=== PATIENT | male | born 1990 | race Caucasian/White ===

== ENCOUNTER 2020-04-14 07:13 | Emergency (ER) | payer MEDICAID, SELFPAY ==
[2020-04-14] VITALS (12 sets, daily range): BP systolic 134–140; BP diastolic 74–78; PULSE 71–113; RESP 7–29; TEMP 37.1; O2SAT 91–99
--- NOTE | 2020-04-14 07:39 | ED.GENADUL_ITS ---
Discharge Plan Disposition Patient Disposition: AGAINST MEDICAL ADVICE Discharge Details Chief Complaint: RespSymp Clinical Impression: Asthma exacerbation, Breath shortness Primary Care Provider: Carla Torres ED Provider: Everett Jameson Home Meds and New Rx's Prescriptions: New doxycycline hyclate 100 mg tablet 100 mg PO BID Qty: 14 RF: 0 Continued ipratropium-albuterol 3 ML solution for nebulization 3 ml UPD PRN PRNQty: 180 RF: 0 Changed fluticasone propion-salmeterol [Advair Diskus] 1 PUFF blister with device 2 ea Inhalation BID Qty: 60 RF: 0 levalbuterol tartrate [Xopenex HFA] 1 PUFF HFA aerosol inhaler 2 puff Inhalation PRN PRN (Reason: shortness of breath or wheezing) Qty: 15 RF: 2 No Action montelukast 10 MG tablet 10 mg PO DAILY RF: 0 cetirizine 10 MG tablet,chewable 10 mg PO DAILY RF: 0 ibuprofen 800 MG tablet 800 mg PO Q8H PRN PRNQty: 60 RF: 0 naproxen 500 MG tablet 500 mg PO BID PRN PRNQty: 30 RF: 0 Discharge Instructions Instructions: Asthma (ED), Against Medical Advice (ED) Additional Instructions: You are leaving AGAINST MEDICAL ADVICE and may have life-threatening or lifestyle modifying disease that is going untreated. Please contact your primary care physician to arrange follow-up. Call on Thursday. Return to the ER at any time for further work-up or treatment as recommended. Discharge Data Discharge Date/Time-TO BE ENTERED AT DEPARTURE: 04/14/20 09:45 Medical Decision Making <Carlos De Guzman MD - Last Filed: 04/14/20 07:45> 29 yo male with hx of asthma who has been withotu inhaler for a week weeks, smoker, recent relapse into use of heroin, comes in with worsening dry cough and shortness of breath for a few days without fevers, travel or known sick contacts. Denies rashes or chest pain. On exam he is in no distress though does have respiatory rate of 24 and diffuse wheezing in all lung manuel on exam. He has no murmurs and no stigmata or lesions such as janeway lesions or osler nodes to suggest endocarditis. Given his work of breath and lung exam findings suspect asthma exacerbation. Will tx with duoneb and solumedrol and monitor. NO chest pain or pressure so doubt acs. No evidence of dvt on exam or pleuritic chest pain and exam is consistent with asthma exacerbation so doubt PE, also wells low and perc negative. Given cough will obtain xray to eval for pna and though no known contacts or travel will obtain test for covid19 pt does note feeling anxious and does have some findings to suggest mild anxiety, will tx with ativan pt signed out to oncoming provider pending xray, labs and response to medical therapy Differential Diagnosis Differential Diagnosis: asthma exacerbation, viral uri, pna, covid19 <Everett Jameson MD - Last Filed: 04/25/20 10:43> 830??care signed out by Dr. De Guzman with plan to follow-up on labs, chest x-ray, and reassess the patient after albuterol and prednisone. Chest x-ray was reviewed and interpreted by radiology: No acute findings Labs reviewed: Mild hypokalemia noted. I will give K-Dur 20. VBG significant for mild elevation of PCO2. Patient reassessed after initial DuoNeb. Still with wheezing and coarse breath sounds bilaterally. Will give additional DuoNeb and reassess. --Patient noting signs of withdrawal from opioid. I did call and confirm that he has gone to the [facility] in [place], last treated 03/22/2020, they confirm dose of 22 mg. I will give Suboxone 12 mg dose here now and reassess. -- Patient received second neb and continues to have coarse breath sounds and some shortness of breath. Plan for neb treatment. Will give doxycycline to cover for bronchitis. Discussed treatment plan with the patient. Plan for additional neb and further observation potential hospitalization. Patient declines plan and wishes to leave against medical advise. I reiterated my concerns to the patient and explained the risks of leaving prior to completion of workup and treatment. I specifically emphasized the possibility of life-threatening or lifestyle modifying disease that would not be appropriately treated if they leave. Patient verbalized understanding of my concerns and the potential for life threatening or lifestyle modifying disease. Patient has capacity to make informed decision. I again explained my concerns and urged the patient to stay for treatment as outlined. Patient continued to refuse. I then discussed potential less ideal alternatives to diagnostic/treatment plan as outlines and patient refused. I recommended that the patient follow-up with primary care physician SANTIAGO or return to the Emergency Department at any time for further treatment. HPI <Carlos De Guzman MD - Last Filed: 04/14/20 07:45> General Mode of arrival: ambulatory . Date/Time Provider Initiated Documentation: 04/14/20 07:14 . Limitations to Documentation: no limitations . Information obtained by: patient . History of Present Illness 29 year old M presents to the emergency department with the chief complaint of shortness of breath, described as moderate, Patient started experiencing this day(s) (2) No relieving factors improve symptom(s), No exacerbating factors reported . Patient did receive the following treatments prior to arrival, none Related Data Home Medications Medication Instructions Recorded Confirmed cetirizine 10 mg PO DAILY 01/02/13 04/14/20 montelukast 10 mg PO DAILY 01/02/13 04/14/20 ibuprofen 800 mg PO Q8H PRN PRN #60 tab 03/30/13 04/14/20 naproxen 500 mg PO BID PRN PRN #30 tablet 06/10/15 04/14/20 doxycycline hyclate 100 mg PO BID #14 tab 04/14/20 fluticasone propion-salmeterol 2 ea INHALATION BID #60 each 04/14/20 [Advair Diskus] ipratropium-albuterol 3 ml UPD PRN PRN #180 ml 04/14/20 levalbuterol tartrate [Xopenex HFA] 2 puff INHALATION PRN PRN #15 gm 04/14/20 Previous Rx's Medication Instructions Recorded ibuprofen 800 mg PO Q8H PRN PRN #60 tab 03/30/13 naproxen 500 mg PO BID PRN PRN #30 tablet 06/10/15 doxycycline hyclate 100 mg PO BID #14 tab 04/14/20 fluticasone propion-salmeterol 2 ea INHALATION BID #60 each 04/14/20 [Advair Diskus] ipratropium-albuterol 3 ml UPD PRN PRN #180 ml 04/14/20 levalbuterol tartrate [Xopenex HFA] 2 puff INHALATION PRN PRN #15 gm 04/14/20 Allergies Allergy/AdvReac Type Severity Reaction Status Date / Time No Known Allergies Allergy Unverified 04/14/20 07:27 General Stated Complaint: RespSymp HEIKE: 3 Review of Systems <Carlos De Guzman MD - Last Filed: 04/14/20 07:45> All systems reviewed & are unremarkable except as noted in HPI and below Constitutional Constitutional: Denies chills, Denies fever(s) and Denies weakness ENT Ears, Nose, Mouth, and Throat: Denies change in voice Cardiovascular Cardiovascular: Denies chest pain Gastrointestinal Gastrointestinal: Denies abdominal pain, Denies nausea and Denies vomiting Musculoskeletal Musculoskeletal: Denies joint swelling Neurologic Neurologic: Denies weakness Psychiatric Psychiatric: Denies depression [facility] <Carlos De Guzman MD - Last Filed: 04/14/20 07:45> Social History Smoking/Tobacco Use Status: Current every day Tobacco Type: cigarettes Alcohol Intake: never Drug use: Daily Substance use type: marijuana and heroin Do you feel safe at home: Yes Do you feel safe in your relationship?: Yes Exam <Carlos De Guzman MD - Last Filed: 04/14/20 07:45> Const General: no acute distress Orientation: alert HENDC Head: normal to inspection Ears: external ears normal General nose exam: external nose normal Mouth: moist mucous membranes Eyes General: appearance normal, both eyes and all related structures Neck Neck: normal visual inspection Resp Effort & Inspection: normal respiratory effort and audible wheezes Cardio Rate: regular rate Skin General skin exam: no rashes or lesions noted Neuro General: patient alert and patient oriented x3 Extrem General: normal to inspection Psych Mental Status: mental status grossly normal Course <Carlos De Guzman MD - Last Filed: 04/14/20 07:45> Vital Signs Vital signs: Vital Signs Temperature 37.1 C 04/14/20 07:21 Pulse 102 H 04/14/20 07:21 Blood Pressure 134/74 04/14/20 07:21 Pulse Oximetry 96 04/14/20 07:21 Temperature 37.1 C 04/14/20 07:21 Temperature Source Oral 04/14/20 07:21 Pulse 102 H 04/14/20 07:21 Respiratory Effort 04/14/20 07:29 Respiratory Depth Normal 04/14/20 07:29 Blood Pressure 134/74 04/14/20 07:21 Blood Pressure Position Sitting 04/14/20 07:21 Pulse Oximetry 96 04/14/20 07:21 Oxygen Delivery Method Room Air 04/14/20 07:21 Oxygen Flow Rate 0 04/14/20 07:21 Sign Out <Carlos De Guzman MD - Last Filed: 04/14/20 07:45> Sign Out Data: Sign Out Comment: shortness of breath, uncontrolled asthma, f/u on labs and xray and response to therapy Last updated by Carlos De Guzman MD at 04/14/20 07:44
--- NOTE | 2020-04-14 07:54 | DI.RAD_ITS ---
EXAM: XR PORTABLE CHEST AP CLINICAL HISTORY: cough TECHNIQUE: 2D digital imaging was performed. COMPARISON: CR CHEST 2 VIEWS PA,LAT from 03/30/2013 FINDINGS: LUNGS: Clear. No pleural abnormality seen. HEART: Normal. MEDIASTINUM: Normal. OTHER FINDINGS: None. IMPRESSION: No acute pulmonary findings. DATA REPOSITORY: RADIATION DOSE DELIVERED:
[2020-04-14] MEDS: predniSONE 20 MG TAB 60 MG PO (08:00)
[2020-04-14] MEDS: Albuterol/Ipratropium 3 ML UPD VIAL UPD ×2 (08:00→08:48)
[2020-04-14] MEDS: LORazepam 1 MG TAB PO (08:00)
--- NOTE | 2020-04-14 08:02 | DI.VRAD_ITS ---
PROCEDURE INFORMATION: Exam: XR Chest, 1 View Exam date and time: 04/14/2020 7:46 AM Age: 29 years old Clinical indication: Other: Cough TECHNIQUE: Imaging protocol: XR of the chest Views: 1 view. COMPARISON: No relevant prior studies available. FINDINGS: Lungs: Unremarkable. No consolidation. Pleural space: Unremarkable. No pleural effusion. No pneumothorax. Heart/Mediastinum: Unremarkable. No cardiomegaly. Bones/joints: Unremarkable. IMPRESSION: No acute findings. Dictated and Authenticated by: Shailesh Gutierrez MD. Ordering:FRANSISCA Gonzalez MD
[2020-04-14 08:35] LABS: BE (Venous) 6.4 mmol/L (-3-3); HCO3 (Venous) 31 mmol/L (22-28); O2 Sat (Venous) 82 % (70-80); TCO2 (Venous) 27 mmol/L (22-29); pCO2 (Venous) 50 mm/Hg (34-47); pH (Venous) 7.41 (7.35-7.45); pO2 (Venous) 44 mm/Hg (28-44)
[2020-04-14 08:40] LABS: Abs Immature Grans 0.01 k/cumm (0.0-0.09); Absolute Basophil Count 0.06 k/cumm (0.0-0.2); Absolute Eosinophil Count 0.65 k/cumm (0.0-0.7); Absolute Lymphocyte Count 1.21 k/cumm (1.2-3.4); Absolute Monocyte Count 1.22 k/cumm (0.11-0.7); Absolute Neutrophil Count 6.87 k/cumm (1.2-6.7); Basophils % 0.6; Eosinophils % 6.5; HCT 44.9 % (40.0-50.0); HGB 15.2 g/dL (13.5-17.5); Immature Grans % 0.1 %; Lymphocytes % 12.1; Mean Corp. HGB Concentration 33.9 g/dL (32.0-36.0); Mean Corpuscular Hemoglobin 28.8 pg (27.0-33.0); Mean Corpuscular Volume 85.2 fL (80-95); Mean Platelet Volume 10.3 fL (8.0-11.0); Monocytes % 12.2; Neutrophils % 68.5; Platelet Count 232 x1000/uL (130-400); RBC 5.27 m/cumm (4.50-6.00); RBC Distribution Width 14.5 % (11.8-14.1); White Blood Cell Count 10.02 k/cumm (4.4-10.8)
[2020-04-14 08:56] LABS: ALT 23 U/L (16-63); AST 15 U/L (15-37); Albumin 3.8 g/dL (3.4-5.0); Alkaline Phosphatase 74 U/L (46-116); Anion Gap 7.6 mmol/L (3-11); BUN 12 mg/dL (7-18); Bilirubin, Total 0.4 mg/dL (0.2-1.0); CO2 30.4 mmol/L (21.0-32.0); CREATININE 0.92 mg/dL (0.70-1.30); Calcium 9.1 mg/dL (8.5-10.1); Chloride 102 mmol/L (98-107); Glucose 114 mg/dL (74-106); Magnesium 1.9 mg/dL (1.8-2.4); Potassium 3.4 mmol/L (3.5-5.1); Sodium 140 mmol/L (136-145); Total Protein 7.5 g/dL (6.4-8.2)
[2020-04-14] MEDS: Buprenorphine/Naloxone 12 mg/3 mg FILM 1 EACH SL (09:00)
[2020-04-14] MEDS: Doxycycline Hyclate 100 MG CAP PO (09:44)
[2020-04-14] MEDS: Potassium Chloride 20 MEQ TABCR PO (09:44)
--- NOTE | 2020-04-16 09:15 | CMPROGNOTE_ITS ---
- If Service Date Differs Date of service: 04/16/20 Time of Service: 09:15 Care Management Progress Note Ernesto is seen in the ED on April 14, 2020 for shortness of breath and asthma exacerbation. CM contacts [facility], Ernesto's PCP's office, to coordinate a follow-up appointment on Ernesto's behalf. Of note is that [facility] does not have contact information for Ernesto, but his PCP's office reports having a telephone number for him and [facility]
[2020-04-18 22:51] LABS: SARS-CoV-2 RNA Undetected (Undetected); SARS-CoV-2 Specimen Source Nasopharynx
== END 2020-04-14 09:45 | disposition left against medical advice (07) ==
PROVIDERS: Emergency Medicine; Emergency Provider Student in an Organized Health Care Education/Training Program; PCP Family Medicine
DX: J45.901 Unspecified asthma with (acute) exacerbation (principal); R06.02 Shortness of breath; R05 Cough; E87.6 Hypokalemia; F41.9 Anxiety disorder, unspecified; Z11.59 Encounter for screening for other viral diseases; Z53.29 Procedure and treatment not carried out because of patient's decision for other reasons; F17.210 Nicotine dependence, cigarettes, uncomplicated; F11.10 Opioid abuse, uncomplicated
CPT/HCPCS: 36410; 36415; 80053; 82805; 87040; 94640; 96374; 99285; U0003; 71045; 83735; 85025; 99284; J7512; J7620

== ENCOUNTER 2020-06-04 02:44 | Emergency (ER) | payer MEDICAID, SELFPAY ==
[2020-06-04] VITALS (23 sets, daily range): BP systolic 110–141; BP diastolic 59–86; PULSE 62–116; RESP 4–32; TEMP 36.4–36.6; O2SAT 85–98
--- NOTE | 2020-06-04 02:45 | DI.RAD_ITS ---
EXAM: XR PORTABLE CHEST AP CLINICAL HISTORY: asthma exacerbation. TECHNIQUE: 2D digital imaging was performed. COMPARISON: CR RIGHT RIBS PA CXR-3 VIEWS from 03/27/2013 CR,XR XR PORTABLE CHEST AP from 04/14/2020 FINDINGS: LUNGS: Clear. No pleural abnormality seen. HEART: Normal. MEDIASTINUM: Normal. OTHER FINDINGS: None. IMPRESSION: No acute pulmonary findings. DATA REPOSITORY: RADIATION DOSE DELIVERED: Total DLP
[2020-06-04] MEDS: EPINEPHrine 1 MG/ML AMP pres-free (02:49)
--- NOTE | 2020-06-04 02:57 | W.ED.GENAD ---
Discharge Plan Disposition Patient Disposition: HOME Condition: Good Discharge Details Chief Complaint: SOB Clinical Impression: Acute asthma exacerbation Primary Care Provider: Carla Torres ED Provider: Cristopher Gold Home Meds and New Rx's Prescriptions: New prednisone 50 MG tablet 50 mg PO DAILY Qty: 5 RF: 0 ipratropium-albuterol 0.5 mg-3 mg(2.5 mg base)/3 mL solution for nebulization 3 ml IH Q6H Qty: 90 RF: 2 Continued montelukast 10 MG tablet 10 mg PO DAILY RF: 0 cetirizine 10 MG tablet,chewable 10 mg PO DAILY RF: 0 ibuprofen 800 MG tablet 800 mg PO Q8H PRN PRNQty: 60 RF: 0 naproxen 500 MG tablet 500 mg PO BID PRN PRNQty: 30 RF: 0 doxycycline hyclate 100 mg tablet 100 mg PO BID Qty: 14 RF: 0 ipratropium-albuterol 3 ML solution for nebulization 3 ml UPD PRN PRNQty: 180 RF: 0 fluticasone propion-salmeterol [Advair Diskus] 1 PUFF blister with device 2 ea Inhalation BID Qty: 60 RF: 0 levalbuterol tartrate [Xopenex HFA] 1 PUFF HFA aerosol inhaler 2 puff Inhalation PRN PRN (Reason: shortness of breath or wheezing) Qty: 15 RF: 2 Discharge Instructions Instructions: Asthma (ED) Additional Instructions: You had a notable asthma exacerbation. Please take the steroids for an additional 5 days as prescribed. Please continue to use your inhaler every 4 hours 2 puffs to help improve your asthma symptomatology. Please follow-up closely with your primary care provider. If you notice any worsening of your symptoms, or any new symptoms such as vomiting, diarrhea, fever, chills, shortness of breath, chest pain, numbness, weakness, or fainting , please return immediately to the emergency department for reevaluation. Please follow up with your primary care provider as soon as possible for reassessment and reevaluation. As always, it was a pleasure participating in your medical care today. Referrals: Carla Torres [Primary Care Provider] - Medical Decision Making Upon my evaluation, this patient had a high probability of imminent or life-threatening deterioration, which required my direct attention, intervention, and personal management. I have personally provided 45 minutes of critical care time exclusive of time spent on separately billable procedures. Time includes review of laboratory data, radiology results, discussion with consultants, and monitoring for potential decompensation. Interventions were performed as documented. 29-year-old male with a past medical history of previous IV drug use for which he has been clean for a while, as well as notable severe asthma for which she has been intubated 3 times in the past presents today for acute exacerbation of asthma. Patient states that for the past 4 days he has been having notable worsening wheeze, he has been using multiple breathing treatments, multiple falls from his inhaler. In the he is also been taking steroids as prescribed by his PCP. Unfortunately in spite of this he has not been improving over the last few days. He presents today in notable respiratory extremis. He states that symptoms feels identical to previous asthma exacerbations. He denies any recent foreign travel, fever, chills or nausea vomiting or diarrhea. No other complaints at this time. Physical exam demonstrates notable respiratory extremis, diminished breath sounds throughout. Wheezes throughout. No other abnormalities clinically. Signs and symptoms appear notably consistent with acute asthma exacerbation. We will get portable chest x-ray, duo nebs and Solu-Medrol. Due to the patient's notable respiratory extremis, hypoxic status, and history of multiple intubations I do feel that epinephrine is indicated. We will give 0.5 mg intramuscularly. We will attempt to stave off intubation at this time as it feels that that would place the patient in a notably challenging ventilator scenario. Symptoms appearing consistent with coronavirus at this time. 5 a.m. After epinephrine, and breathing treatments the patient has a notable improvement of his symptomatology. He is feeling much better, has a significant ease and work of breathing. Chest x-ray was negative as read as negative per virtual radiology. Initial VBG did show evidence of mild CO2 retention, laboratory work-up shows mild elevation in his WBC count, however he has been on steroids for the last 4 days. No evidence of infiltrate on x-ray seen no evidence of significant infectious etiology. With the profound improvement the patient's symptomatology she is feeling well and would like to go home. I would like to continue to observe the patient for a bit longer here in the ED secondary to the epinephrine administration to make sure that there is no rebound component. After 3 hours of observation I do feel that discharge would be reasonable to respect the patient's current wishes. We will continue to monitor closely here. 5:40 a.m. Patient continues to feel very well, wheezes have notably improved, work of breathing has returned to normal, patient states that he feels 100 times better. He feels ready to go home. Patient will be discharged home with close follow-up, refill for DuoNeb prescription has been given, recommend avoiding NSAIDs, will do a 5-day continued burst of steroids. I have extensively reviewed the treatment plan and discharge instructions with the patient. I have addressed all patient concerns at this time. The patient was made aware of what symptoms to monitor for that would warrant a return to the emergency department. Discussed the plan with the patient, they demonstrate verbal understanding and agreement with our assessment and plan at this time. This time the patient shows no signs of acute life-threatening respiratory etiology anymore. Notable clinical improvement from his initial presentation. FINDINGS: Lungs: Mild chronic interstitial prominence, grossly stable. No consolidation. Pleural space: No pleural effusion. No pneumothorax. Heart/Mediastinum: Grossly stable. Bones/joints: Grossly stable IMPRESSION: No acute findings. No focal consolidation Thank you for allowing us to participate in the care of your patient. Dictated and Authenticated by: Yvan Gutierrez MD 06/04/2020 3:10 AM Eastern Time ([place] & [place]) HPI General Date/Time Provider Initiated Documentation: 06/04/20 02:45. HPI Narrative: 29-year-old male with a past medical history of previous IV drug use for which he has been clean for a while, as well as notable severe asthma for which she has been intubated 3 times in the past presents today for acute exacerbation of asthma. Patient states that for the past 4 days he has been having notable worsening wheeze, he has been using multiple breathing treatments, multiple falls from his inhaler. In the he is also been taking steroids as prescribed by his PCP. Unfortunately in spite of this he has not been improving over the last few days. He presents today in notable respiratory extremis. He states that symptoms feels identical to previous asthma exacerbations. He denies any recent foreign travel, fever, chills or nausea vomiting or diarrhea. No other complaints at this time. Related Data Home Medications Medication Instructions Recorded Confirmed cetirizine 10 mg PO DAILY 01/02/13 04/14/20 montelukast 10 mg PO DAILY 01/02/13 04/14/20 ibuprofen 800 mg PO Q8H PRN PRN #60 tab 03/30/13 04/14/20 naproxen 500 mg PO BID PRN PRN #30 tablet 06/10/15 04/14/20 doxycycline hyclate 100 mg PO BID #14 tab 04/14/20 fluticasone propion-salmeterol 2 ea INHALATION BID #60 each 04/14/20 [Advair Diskus] ipratropium-albuterol 3 ml UPD PRN PRN #180 ml 04/14/20 levalbuterol tartrate [Xopenex HFA] 2 puff INHALATION PRN PRN #15 gm 04/14/20 ipratropium-albuterol 3 ml IH Q6H #90 ml 06/04/20 prednisone 50 mg PO DAILY #5 tab 06/04/20 Previous Rx's Medication Instructions Recorded ibuprofen 800 mg PO Q8H PRN PRN #60 tab 03/30/13 naproxen 500 mg PO BID PRN PRN #30 tablet 06/10/15 doxycycline hyclate 100 mg PO BID #14 tab 04/14/20 fluticasone propion-salmeterol 2 ea INHALATION BID #60 each 04/14/20 [Advair Diskus] ipratropium-albuterol 3 ml UPD PRN PRN #180 ml 04/14/20 levalbuterol tartrate [Xopenex HFA] 2 puff INHALATION PRN PRN #15 gm 04/14/20 ipratropium-albuterol 3 ml IH Q6H #90 ml 06/04/20 prednisone 50 mg PO DAILY #5 tab 06/04/20 Allergies Allergy/AdvReac Type Severity Reaction Status Date / Time No Known Allergies Allergy Unverified 06/04/20 02:57 General Stated Complaint: SOB HEIKE: 1 Review of Systems All systems reviewed & are unremarkable except as noted in HPI and below PFSH Social History Smoking/Tobacco Use Status: Current every day Tobacco Type: cigarettes Alcohol Intake: never Drug use: Current Sobriety Substance use type: marijuana and heroin Do you feel safe at home: Yes Do you feel safe in your relationship?: Yes Exam Narrative Exam Narrative: 1.Const: Well-nourished, Well-developed, appearing stated age 2.Eyes: PERRL, no conjunctival injection, and symmetrical lids. 3.ENT: Atraumatic external nose and ears. Moist MM. Neck: Symmetric, trachea midline, No thyromegaly. 4.CVS: +S1/S2, No murmurs or gallops. Peripheral pulses 2+ and equal in all extremities. Brisk capillary refill in all extremities. 5.RESP: Notable respiratory difficulty, respiratory extremities, notable wheeze throughout, diminished lung sounds throughout. No rhonchi or rales. 6.GI: Soft, Nontender/Nondistended, No hepatosplenomegaly. No guarding or rebound. 7.MSK: Normocephalic/Atraumatic, Extremities w/o deformity or ttp No cyanosis or clubbing, Normal movement of all extremities 8.Skin: Warm, Dry. No rashes or lesions. 9.Neuro: linseed oil press tender II-XII grossly intact. Sensation grossly intact, no focal neurologic deficits. 10.Psych: (AAO) x3. Slightly anxious Course Vital Signs Vital signs: Vital Signs Temperature 36.4 C L 06/04/20 02:55 Pulse 109 H 06/04/20 02:55 Respiratory Rate 26 H 06/04/20 02:55 Blood Pressure 141/69 H 06/04/20 02:55 Pulse Oximetry 87 L 06/04/20 02:55 Temperature 36.4 C L 06/04/20 02:55 Temperature Source Skin 06/04/20 02:55 Pulse 109 H 06/04/20 02:55 Respiratory Rate 26 H 06/04/20 02:55 Blood Pressure 141/69 H 06/04/20 02:55 Blood Pressure Position Sitting 06/04/20 02:55 Pulse Oximetry 87 L 06/04/20 02:55 Oxygen Delivery Method Room Air 06/04/20 02:55 Oxygen Flow Rate 0 06/04/20 02:55 Pain Level 7 06/04/20 02:55
[2020-06-04 03:01] LABS: BE (Venous) 2 mmol/L (-2-3); HCO3 (Venous) 29 mmol/L (23-28); O2 Sat (Venous) 77 %; TCO2 (Venous) 26 mmol/L (24-29); pH (Venous) 7.27 (7.31-7.41); pO2 (Venous) 46 mmHg
[2020-06-04] MEDS: methylPREDNISolone SUCC 125 MG VIAL IVP (03:02)
[2020-06-04] MEDS: Albuterol/Ipratropium 3 ML UPD VIAL (03:03)
[2020-06-04 03:05] LABS: pCO2 (Venous) 64 mmHg (41-51)
[2020-06-04 03:11] LABS: Abs Immature Grans 0.05 10^3/uL (0.0-0.06); Absolute Basophil Count 0.06 10^3/uL (0.0-0.2); Absolute Eosinophil Count 0.24 10^3/uL (0.0-0.7); Absolute Lymphocyte Count 3.16 10^3/uL (1.2-3.4); Absolute Monocyte Count 1.29 10^3/uL (0.1-0.8); Absolute Neutrophil Count 10.05 10^3/uL (1.2-6.7); Basophils % 0.4; Eosinophils % 1.6; HCT 51.6 % (40.0-50.0); HGB 16.6 g/dL (13.5-17.5); Immature Grans % 0.3; Lymphocytes % 21.3; MCH 27.9 pg (27.0-33.0); MCHC 32.2 % (32.0-36.0); MCV 86.9 fL (80-95); MPV 10.4 fL (8.0-11.0); Monocytes % 8.7; Neutrophils % 67.7; Nucleated RBC 0 %; Platelet Count 297 10^3/uL (130-400); RBC 5.94 10^6/uL (4.36-5.78); RDW 14.1 % (11.8-14.1); RDW-SD 45.2 fL; WBC 14.85 10^3/uL (4.4-10.8)
--- NOTE | 2020-06-04 03:11 | DI.VRAD_ITS ---
PROCEDURE INFORMATION: Exam: XR Chest, 1 View Exam date and time: 06/04/2020 2:59 AM Age: 29 years old Clinical indication: Shortness of breath; Patient HX: Asthma exacerbation TECHNIQUE: Imaging protocol: XR of the chest Views: 1 view. COMPARISON: CR XR PORTABLE CHEST AP 04/14/2020 7:40 AM FINDINGS: Lungs: Mild chronic interstitial prominence, grossly stable. No consolidation. Pleural space: No pleural effusion. No pneumothorax. Heart/Mediastinum: Grossly stable. Bones/joints: Grossly stable IMPRESSION: No acute findings. No focal consolidation Dictated and Authenticated by: Yvan Gutierrez MD. Ordering:TRAVON Nicholas MD
[2020-06-04] MEDS: Acetaminophen 500 MG TAB 1000 MG PO (03:16)
[2020-06-04 03:30] LABS: ALT 43 U/L (16-63); AST 11 U/L (15-37); Albumin 4.3 g/dL (3.4-5.0); Alkaline Phosphatase 60 U/L (46-116); Anion Gap 6.5 mmol/L (3-11); BUN 18 mg/dL (7-18); Bilirubin, Total 0.2 mg/dL (0.2-1.0); CO2 30.5 mmol/L (21.0-32.0); CREATININE 0.93 mg/dL (0.70-1.30); Calcium 8.7 mg/dL (8.5-10.1); Chloride 105 mmol/L (98-107); Glucose 99 mg/dL (74-106); Magnesium 2.2 mg/dL (1.8-2.4); Potassium 4.2 mmol/L (3.5-5.1); Sodium 142 mmol/L (136-145); Total Protein 7.7 g/dL (6.4-8.2)
[2020-06-04] MEDS: Albuterol/Ipratropium 3 ML UPD VIAL 9 ML (05:09)
== END 2020-06-04 05:55 | disposition home or self-care (01) ==
PROVIDERS: Emergency Provider Student in an Organized Health Care Education/Training Program; PCP Family Medicine
DX: J45.901 Unspecified asthma with (acute) exacerbation (principal)
CPT/HCPCS: 80053; 82805; 94640; 96372; 96374; 99291; 36600; 71045; 83735; 85025; J0171; J2930; J7620

== ENCOUNTER 2020-06-05 09:10 | Emergency (ER) | payer MEDICAID, SELFPAY ==
[2020-06-05] VITALS (22 sets, daily range): BP systolic 123–139; BP diastolic 63–78; PULSE 75–108; RESP 4–22; TEMP 36.6; O2SAT 88–99
--- NOTE | 2020-06-05 09:15 | RT.EKG_ITS ---
APPROVED REPORT Exam: Resting ECG Patient Location: E HR:86 bpm ECG Measurements Heart Rate 86 AXIS MD 108 P 68 QRSd 103 QRS 33 QT 353 T 74 QTc 423 Conclusion Sinus rhythm...normal P axis, V-rate 60- 99 ST elev, probable normal early repol pattern...ST elevation, age<55
--- NOTE | 2020-06-05 09:15 | DI.RAD_ITS ---
EXAM: XR PORTABLE CHEST AP CLINICAL HISTORY: asthma, sob. TECHNIQUE: 2D digital imaging was performed. COMPARISON: CR,XR XR PORTABLE CHEST AP from 06/04/2020 FINDINGS: LUNGS: Clear. No pleural abnormality seen. HEART: Normal. MEDIASTINUM: Normal. OTHER FINDINGS: None. IMPRESSION: No acute pulmonary findings. DATA REPOSITORY: RADIATION DOSE DELIVERED: Total DLP
--- NOTE | 2020-06-05 09:24 | ED.GENADUL_ITS ---
Discharge Plan Disposition Patient Disposition: HOME Condition: Improving Discharge Details Chief Complaint: SOB Clinical Impression: Acute asthma exacerbation Primary Care Provider: Carla Torres ED Provider: Negro Whalen Home Meds and New Rx's Prescriptions: Continued montelukast 10 MG tablet 10 mg PO DAILY RF: 0 cetirizine 10 MG tablet,chewable 10 mg PO DAILY RF: 0 ibuprofen 800 MG tablet 800 mg PO Q8H PRN PRNQty: 60 RF: 0 naproxen 500 MG tablet 500 mg PO BID PRN PRNQty: 30 RF: 0 ipratropium-albuterol 0.5 mg-3 mg(2.5 mg base)/3 mL solution for nebulization 3 ml IH Q6H Qty: 90 RF: 2 prednisone 50 MG tablet 50 mg PO DAILY Qty: 5 RF: 0 ipratropium-albuterol 3 ML solution for nebulization 3 ml UPD PRN PRNQty: 180 RF: 0 fluticasone propion-salmeterol [Advair Diskus] 1 PUFF blister with device 2 ea Inhalation BID Qty: 60 RF: 0 levalbuterol tartrate [Xopenex HFA] 1 PUFF HFA aerosol inhaler 2 puff Inhalation PRN PRN (Reason: shortness of breath or wheezing) Qty: 15 RF: 2 Discharge Instructions Instructions: Asthma (ED) Additional Instructions: Continue the previously prescribed prednisone. Use your peak flow meter as instructed by respiratory therapy. Continue DuoNeb nebulizers at home as prescribed. Return for recurrent difficulty breathing, development of fever, or any other acute concerns. Continue your efforts to stop smoking. Medical Decision Making 29-year-old male seen early in the morning of June 04 for asthma exacerbation. States he has been unable to fill his prednisone prescription. Arrives with room air sat approximate 90 to 90% with increased work of breathing and started expiratory wheezes. IV access established patient given parenteral fluids, 3 inhaled aerogen nebulizers, referred for chest x-ray. Note of negative COVID testing on April 14. Portable chest x-ray obtained which does not show any acute findings. Patient was given parenteral Solu-Medrol, inhaled albuterol as beta agonist as well as magnesium. He improved and felt subjectively better. He was given instructions as to peak flow use, he was given to go medications for his nebulizer as well as a refill of his inhaler. He was recommended to have a further observation in the ED but requested early disposition in order to make an appointment for his daily methadone dose. I do feel this is reasonable request and patient was discharged in stable and improved condition. Lab Data Lab results reviewed: Yes I reviewed the patient's lab results. Labs: Laboratory Results - last 24 hr 06/05/20 06/05/20 09:25 09:25 WBC 13.95 H RBC 6.10 H Hgb 17.3 Hct 53.5 H MCV 87.7 MCH 28.4 MCHC 32.3 RDW 14.6 H Plt Count 282 MPV 10.1 Immature Gran % 0.5 Neutrophils % 79.2 Lymphocytes % 12.8 Monocytes % 7.3 Eosinophils % 0.1 Basophils % 0.1 Nucleated RBC % 0 Absolute Neutrophils 11.05 H Absolute Lymphocytes 1.79 Absolute Monocytes 1.02 H Absolute Eosinophils 0.01 Absolute Basophils 0.01 Sodium 140 Potassium 3.8 Chloride 105 Carbon Dioxide 31.1 Anion Gap 3.9 BUN 17 Creatinine 0.84 Estimated GFR/1.73 m2 >= 60.00 Glucose 94 Calcium 9.2 Total Bilirubin 0.5 AST 8 L ALT 40 Alkaline Phosphatase 61 Total Protein 7.9 Albumin 4.4 HPI General Mode of arrival: ambulatory . Date/Time Provider Initiated Documentation: 06/05/20 09:13 . Limitations to Documentation: no limitations . Information obtained by: patient . History of Present Illness 29 year old M presents to the emergency department with the chief complaint of Asthma exacerbation, unable to fill recent prescription, described as moderate and similar to prior episodes, Quality is described as dull and constant, and is localized to the chest. Patient reports no radiation. Patient started experiencing this hour(s) and it has been constant. No relieving factors improve symptom(s), No exacerbating factors reported . Patient notes other (No travel); denies cough and fever/chills. Related Data Home Medications Medication Instructions Recorded Confirmed cetirizine 10 mg PO DAILY 01/02/13 06/05/20 montelukast 10 mg PO DAILY 01/02/13 06/05/20 ibuprofen 800 mg PO Q8H PRN PRN #60 tab 03/30/13 06/05/20 naproxen 500 mg PO BID PRN PRN #30 tablet 06/10/15 06/05/20 fluticasone propion-salmeterol 2 ea INHALATION BID #60 each 04/14/20 06/05/20 [Advair Diskus] ipratropium-albuterol 3 ml UPD PRN PRN #180 ml 04/14/20 06/05/20 levalbuterol tartrate [Xopenex HFA] 2 puff INHALATION PRN PRN #15 gm 04/14/20 06/05/20 ipratropium-albuterol 3 ml IH Q6H #90 ml 06/05/20 prednisone 50 mg PO DAILY #5 tab 06/05/20 Previous Rx's Medication Instructions Recorded ibuprofen 800 mg PO Q8H PRN PRN #60 tab 03/30/13 naproxen 500 mg PO BID PRN PRN #30 tablet 06/10/15 fluticasone propion-salmeterol 2 ea INHALATION BID #60 each 04/14/20 [Advair Diskus] ipratropium-albuterol 3 ml UPD PRN PRN #180 ml 04/14/20 levalbuterol tartrate [Xopenex HFA] 2 puff INHALATION PRN PRN #15 gm 04/14/20 ipratropium-albuterol 3 ml IH Q6H #90 ml 06/05/20 prednisone 50 mg PO DAILY #5 tab 06/05/20 Allergies Allergy/AdvReac Type Severity Reaction Status Date / Time No Known Allergies Allergy Unverified 06/05/20 09:22 General Stated Complaint: SOB HEIKE: 2 Review of Systems Narrative: Positive dust and dander in the home. He is currently not smoking. Others in the home smoke. No travel, fever, production of sputum. 8 systems reviewed and otherwise negative. Was unable to fill prednisone prescription [facility] Social History Smoking/Tobacco Use Status: Current every day Tobacco Type: cigarettes Alcohol Intake: never Drug use: Current Sobriety Substance use type: marijuana and heroin Do you feel safe at home: Yes Do you feel safe in your relationship?: Yes Exam Narrative Exam Narrative: GEN: awake, alert, oriented 3. Pleasant, well groomed, interactive. HEAD: Normocephalic, atraumatic ENT: Mucous membranes moist, oropharynx unremarkable, External ear exam unremarkable EYES: PERRL, EOMI NECK: Full ROM, no EMELY, no menigismus CHEST/RESP: Tachypneic with inspiratory and expiratory wheezing CARDIOVASCULAR: Borderline regular tachycardia, no murmur, rub rebecca. 2+ Rad pulse bilateral ABDOMEN: Soft, nontender, no mass. +Bowel sounds EXT: Full ROM, no edema, no rash Neuro: Grossly normal neurologic exam, conversant, interactive. Psych: Speech fluent, thoughts congruent, affect normal Course Vital Signs Vital signs: Vital Signs Temperature 36.6 C 06/05/20 09:15 Pulse 99 H 06/05/20 09:15 Respiratory Rate 21 06/05/20 09:15 Pulse Oximetry 91 L 06/05/20 09:15 Temperature 36.6 C 06/05/20 09:15 Temperature Source Skin 06/05/20 09:15 Pulse 99 H 06/05/20 09:15 Respiratory Rate 21 06/05/20 09:15 Blood Pressure Position Sitting 06/05/20 09:15 Pulse Oximetry 91 L 06/05/20 09:15 Oxygen Delivery Method Room Air 06/05/20 09:15 Oxygen Flow Rate 0 06/05/20 09:15
[2020-06-05] MEDS: methylPREDNISolone SUCC 125 MG VIAL IVP (09:28)
[2020-06-05] MEDS: MAGNESIUM SULFATE 2 GM/50 ML BAG IVPB (09:29)
[2020-06-05] MEDS: Normal Saline Flush 10 ML SYR IVP (09:31)
[2020-06-05] MEDS: Albuterol/Ipratropium 3 ML UPD VIAL ×2 (09:37→09:40)
[2020-06-05 09:44] LABS: Abs Immature Grans 0.07 10^3/uL (0.0-0.06); Absolute Basophil Count 0.01 10^3/uL (0.0-0.2); Absolute Lymphocyte Count 1.79 10^3/uL (1.2-3.4); Absolute Monocyte Count 1.02 10^3/uL (0.1-0.8); Basophils % 0.1; Eosinophils % 0.1; HCT 53.5 % (40.0-50.0); HGB 17.3 g/dL (13.5-17.5); Immature Grans % 0.5; Lymphocytes % 12.8; MCH 28.4 pg (27.0-33.0); MCHC 32.3 % (32.0-36.0); MCV 87.7 fL (80-95); MPV 10.1 fL (8.0-11.0); Monocytes % 7.3; Neutrophils % 79.2; Nucleated RBC 0 %; Platelet Count 282 10^3/uL (130-400); RDW 14.6 % (11.8-14.1); RDW-SD 46.5 fL; WBC 13.95 10^3/uL (4.4-10.8)
[2020-06-05 09:48] LABS: Absolute Eosinophil Count 0.01 10^3/uL (0.0-0.7); Absolute Neutrophil Count 11.05 10^3/uL (1.2-6.7)
[2020-06-05 10:30] LABS: ALT 40 U/L (16-63); AST 8 U/L (15-37); Albumin 4.4 g/dL (3.4-5.0); Alkaline Phosphatase 61 U/L (46-116); Anion Gap 3.9 mmol/L (3-11); BUN 17 mg/dL (7-18); Bilirubin, Total 0.5 mg/dL (0.2-1.0); CO2 31.1 mmol/L (21.0-32.0); CREATININE 0.84 mg/dL (0.70-1.30); Calcium 9.2 mg/dL (8.5-10.1); Chloride 105 mmol/L (98-107); Glucose 94 mg/dL (74-106); Potassium 3.8 mmol/L (3.5-5.1); Sodium 140 mmol/L (136-145); Total Protein 7.9 g/dL (6.4-8.2)
== END 2020-06-05 10:51 | disposition home or self-care (01) ==
PROVIDERS: Emergency Provider Emergency Medicine; PCP Family Medicine
DX: J45.901 Unspecified asthma with (acute) exacerbation (principal)
CPT/HCPCS: 80053; 93005; 94640; 96374; 99284; 71045; 85025; 93010; J2930; J7611; J7620

== ENCOUNTER 2020-06-12 07:09 | Outpatient (CLI) | payer MEDICAID, SELFPAY ==
[2020-06-13 12:23] LABS: COVID-19 RT-PCR Result NEGATIVE (Negative)
== END 2020-06-12 07:29 ==
PROVIDERS: PCP Family Medicine; Visit Provider Family Medicine
DX: J45.901 Unspecified asthma with (acute) exacerbation (principal)
CPT/HCPCS: U0003

== ENCOUNTER 2020-06-15 01:14 | Outpatient (CLI) | payer MEDICAID, SELFPAY ==
[2020-06-15] MEDS: Albuterol HFA 18 GM 200 PUFF INH IH (14:22)
[2020-06-15] MEDS: Inhaler, Assist Device 1 EACH MC (14:22)
--- NOTE | 2020-06-28 16:29 | W.PFT ---
Date of service: 06/15/20 Time of Service: 10:02 Pulmonary Function Test Result Interpretation Spirometry: Shows very severe obstructive airways disease with significant bronchodilator response Lung Volumes: No evidence of restriction, severe hyperinflation and air trapping Diffusion Capacity: Normal Airway Pressure: Markedly elevated Impression Very severe obstructive airways disease, associated with significant bronchodilator response and severe hyperinflation and air trapping. It is also associated with severely elevated airways resistance Clinical Correlation therefore is recommended.
== END 2020-06-15 01:34 ==
PROVIDERS: PCP Family Medicine; Visit Provider Family Medicine
DX: J45.909 Unspecified asthma, uncomplicated (principal); R06.09 Other forms of dyspnea; R05 Cough; R07.89 Other chest pain; F17.200 Nicotine dependence, unspecified, uncomplicated
CPT/HCPCS: 94060; 94726; 94729

== ENCOUNTER 2020-06-28 10:28 | Emergency (ER) | payer MEDICAID, SELFPAY ==
[2020-06-28] VITALS (64 sets, daily range): BP systolic 99–140; BP diastolic 38–108; PULSE 75–113; RESP 4–28; TEMP 36.8; O2SAT 86–100
--- NOTE | 2020-06-28 10:42 | W.ED.GENAD ---
Discharge Plan Disposition Patient Disposition: HOME Condition: Improving Discharge Details Clinical Impression: Acute asthma exacerbation Primary Care Provider: Carla Torres ED Provider: Negro Whalen Home Meds and New Rx's Prescriptions: New prednisone 50 mg tablet 50 mg PO DAILY 6 Days Qty: 6 RF: 0 azithromycin 250 mg tablet See Rx Instructions .ROUTE .COMPLEX Qty: 6 RF: 0 Continued cetirizine 10 MG tablet,chewable 10 mg PO DAILY RF: 0 ibuprofen 800 MG tablet 800 mg PO Q8H PRN PRNQty: 60 RF: 0 ipratropium-albuterol 0.5 mg-3 mg(2.5 mg base)/3 mL solution for nebulization 3 ml IH Q6H Qty: 90 RF: 2 ipratropium-albuterol 3 ML solution for nebulization 3 ml UPD PRN PRNQty: 180 RF: 0 fluticasone propion-salmeterol [Advair Diskus] 1 PUFF blister with device 2 ea Inhalation BID Qty: 60 RF: 0 levalbuterol tartrate [Xopenex HFA] 1 PUFF HFA aerosol inhaler 2 puff Inhalation PRN PRN (Reason: shortness of breath or wheezing) Qty: 15 RF: 2 Discharge Instructions Instructions: Asthma (ED) Additional Instructions: Return if you have recurrent difficulty breathing, develop recurrent wheezing, or any other acute concerns. Take prednisone as prescribed for its entire course. Take azithromycin as prescribed. Continue your efforts to decrease smoking. Medical Decision Making 29-year-old male asthmatic who continues to smoke. He states he woke this morning with difficulty breathing and wheezing at home. He has noted a cough this week but no fever or known sick contacts. He arrives to the ED tachycardic and oxygenating 90%. He does not have a fever. IV access established, patient given parenteral steroids and inhaled beta agonist. Is referred for screening laboratories and chest x-ray. Chest x-ray without focal infiltrate. Laboratories note reassuring CBC and chemistries. Patient observed over 5 and half hours with significant improvement of his breathing. He is ambulatory and with a 95% sat on room air. Wheezing has nearly completely diminished and he subjectively feels all better. He did report cough with production of sputum and ongoing use of tobacco. I do feel compelled to place him on a course of antibiotics for a developing bronchitis, but he will also require systemic steroids with a burst of prednisone. He is stable and improved at this time. His length of stay in the ER placed him beyond the opening hours of the Suboxone clinic and he was given his daily dose prior to discharge. HPI General Mode of arrival: ambulatory. Date/Time Provider Initiated Documentation: 06/28/20 10:29. Limitations to Documentation: no limitations. Information obtained by: patient. History of Present Illness 29 year old M presents to the emergency department with the chief complaint of Asthma exacerbation, wheezing, described as moderate, Quality is described as constant, and is localized to the chest. Patient reports no radiation. Patient started experiencing this hour(s) and it has been constant. No relieving factors improve symptom(s), No exacerbating factors reported . Patient notes cough; denies fever/chills. Patient did receive the following treatments prior to arrival, none Related Data Home Medications Medication Instructions Recorded Confirmed cetirizine 10 mg PO DAILY 01/02/13 06/28/20 ibuprofen 800 mg PO Q8H PRN PRN #60 tab 03/30/13 06/28/20 fluticasone propion-salmeterol 2 ea INHALATION BID #60 each 04/14/20 06/28/20 [Advair Diskus] ipratropium-albuterol 3 ml UPD PRN PRN #180 ml 04/14/20 06/28/20 levalbuterol tartrate [Xopenex HFA] 2 puff INHALATION PRN PRN #15 gm 04/14/20 06/28/20 ipratropium-albuterol 3 ml IH Q6H #90 ml 06/05/20 06/28/20 azithromycin See Rx Instructions .ROUTE 06/28/20 .COMPLEX #6 tab prednisone 50 mg PO DAILY 6 Days #6 tab 06/28/20 Previous Rx's Medication Instructions Recorded ibuprofen 800 mg PO Q8H PRN PRN #60 tab 03/30/13 fluticasone propion-salmeterol 2 ea INHALATION BID #60 each 04/14/20 [Advair Diskus] ipratropium-albuterol 3 ml UPD PRN PRN #180 ml 04/14/20 levalbuterol tartrate [Xopenex HFA] 2 puff INHALATION PRN PRN #15 gm 04/14/20 ipratropium-albuterol 3 ml IH Q6H #90 ml 06/05/20 azithromycin See Rx Instructions .ROUTE 06/28/20 .COMPLEX #6 tab prednisone 50 mg PO DAILY 6 Days #6 tab 06/28/20 Allergies Allergy/AdvReac Type Severity Reaction Status Date / Time No Known Allergies Allergy Unverified 06/28/20 10:40 General Stated Complaint: SOB HEIKE: 2 Review of Systems Narrative: Continues to smoke, notes a cough this week, no known sick contacts or travel. 6 systems reviewed and otherwise negative [facility] Social History Smoking/Tobacco Use Status: Current every day Tobacco Type: cigarettes Alcohol Intake: never Drug use: Current Sobriety Substance use type: marijuana and heroin Do you feel safe at home: Yes Do you feel safe in your relationship?: Yes Exam Narrative Exam Narrative: GEN: awake, alert, oriented 3, well groomed, interactive. HEAD: Normocephalic, atraumatic ENT: Mucous membranes moist, oropharynx unremarkable, External ear exam unremarkable EYES: PERRL, EOMI NECK: Full ROM, no EMELY, no menigismus CHEST/RESP: Nontender, bilateral inspiratory and expiratory wheeze with increased work of breathing CARDIOVASCULAR: Tachycardic, regular, no murmur, rub rebecca. 2+ Rad pulse bilateral ABDOMEN: Soft, nontender, no mass. +Bowel sounds EXT: Full ROM, no edema, no rash Neuro: Grossly normal neurologic exam, conversant, interactive. Psych: Speech fluent, thoughts congruent, affect normal Course Vital Signs Vital signs: Vital Signs Temperature 36.8 C 06/28/20 10:36 Pulse 102 H 06/28/20 10:36 Blood Pressure 139/67 06/28/20 10:36 Pulse Oximetry 90 L 06/28/20 10:36 Temperature 36.8 C 06/28/20 10:36 Temperature Source Temporal Artery Scan 06/28/20 10:36 Pulse 102 H 06/28/20 10:36 Respiratory Effort Labored 06/28/20 10:40 Blood Pressure 139/67 06/28/20 10:36 Blood Pressure Position Supine 06/28/20 10:36 Pulse Oximetry 90 L 06/28/20 10:36 Oxygen Delivery Method Room Air 06/28/20 10:36 Oxygen Flow Rate 0 06/28/20 10:36
[2020-06-28] MEDS: MAGNESIUM SULFATE 2 GM/50 ML BAG IVPB (10:56)
[2020-06-28] MEDS: Albuterol 2.5 MG/3 ML INH SOLN VIAL (10:58)
[2020-06-28] MEDS: Normal Saline 1,000 ML 150 ML IV (11:10)
[2020-06-28] MEDS: methylPREDNISolone SUCC 125 MG VIAL IVP (11:10)
[2020-06-28 11:11] LABS: Abs Immature Grans 0.01 10^3/uL (0.0-0.06); Absolute Basophil Count 0.07 10^3/uL (0.0-0.2); Absolute Lymphocyte Count 1.07 10^3/uL (1.2-3.4); Absolute Monocyte Count 0.86 10^3/uL (0.1-0.8); Absolute Neutrophil Count 2.89 10^3/uL (1.2-6.7); Basophils % 1.3; Eosinophils % 9.3; HCT 47.5 % (40.0-50.0); HGB 15.6 g/dL (13.5-17.5); Immature Grans % 0.2; Lymphocytes % 19.8; MCH 27.9 pg (27.0-33.0); MCHC 32.8 % (32.0-36.0); MPV 10.4 fL (8.0-11.0); Monocytes % 15.9; Neutrophils % 53.5; Nucleated RBC 0 %; Platelet Count 245 10^3/uL (130-400); RBC 5.59 10^6/uL (4.36-5.78); RDW 14.1 % (11.8-14.1); RDW-SD 43.6 fL
[2020-06-28 11:24] LABS: ALT 31 U/L (16-63); AST 14 U/L (15-37); Alkaline Phosphatase 64 U/L (46-116); Anion Gap 7.4 mmol/L (3-11); BUN 18 mg/dL (7-18); Bilirubin, Total 0.4 mg/dL (0.2-1.0); CO2 29.6 mmol/L (21.0-32.0); CREATININE 1.01 mg/dL (0.70-1.30); Calcium 9.1 mg/dL (8.5-10.1); Chloride 104 mmol/L (98-107); Glucose 100 mg/dL (74-106); Potassium 3.9 mmol/L (3.5-5.1); Sodium 141 mmol/L (136-145); Total Protein 7.4 g/dL (6.4-8.2)
[2020-06-28] MEDS: Albuterol/Ipratropium 3 ML UPD VIAL UPD (12:00)
--- NOTE | 2020-06-28 12:00 | DI.RAD_ITS ---
EXAM: XR PORTABLE CHEST AP CLINICAL HISTORY: shortness of breath. TECHNIQUE: 2D digital imaging was performed. COMPARISON: CR XR PORTABLE CHEST AP from 06/05/2020 FINDINGS: LUNGS: Clear. No pleural abnormality seen. HEART: Normal. MEDIASTINUM: Normal. OTHER FINDINGS: None. IMPRESSION: No acute pulmonary findings. DATA REPOSITORY: RADIATION DOSE DELIVERED: Total DLP
[2020-06-28] MEDS: Buprenorphine/Naloxone 8 mg/2 mg FILM 1 EACH SL (16:19)
[2020-06-28] MEDS: Buprenorphine/Naloxone 12 mg/3 mg FILM 1 EACH SL (16:20)
--- NOTE | 2020-06-29 11:56 | CMPROGNOTE_ITS ---
- If Service Date Differs Date of service: 06/29/20 Time of Service: 11:56 Care Management Progress Note Ori presented to the ED via [facility] last evening for asthma exacerbation and a cough. WHIT spoke with Ori while he was at [facility]. Ori is a [facility] client who lives in [place] and uses [facility] back and forth to appointments. Due to his shortness of breath and cough, Ori was advised by the [facility] shuttle driver that rides to appointments were being cancelled until he could obtain a letter from [facility] stating he was tested for the coronavirus and the test results were negative. This morning, CM telephoned [facility] with verbal permission from Ori to clarify what they need from [facility] in order to reinstate rides for Ori. Sarita of [facility] advises that it is their policy to not provide rides to clients with coughs and shortness of breath until a letter is obtained from a medical provider stating the individual was tested for Covid-19 and the test results were negative. WHIT then contacted Mariam, vice-president of quality management at [facility], to ensure such a letter could be provided once the Covid-19 test results were back. Mariam affirmed her ability to write a letter addressed to Ori, which he could then present to [facility]. WHIT then contacted Tanja at the [facility] to see if they could provide ride assistance. Tanja advised she does have volunteer drivers that could be made available on week. WHIT texted Ori to provide him contact information for Tanja and to advise him to call her to work out the details for transportation. Ori advised he had figured out rides through the weekend and said he would call Tanja, as he likely will need rides to appointments next week.
[2020-06-30 21:21] LABS: Patient Race White; SARS-CoV-2 RNA Undetected (Undetected); SARS-CoV-2 Specimen Source Nasopharynx
--- NOTE | 2020-07-02 10:31 | NUR.NOTE ---
called made to patient letting him know that i his covid results were negative. results faxed to [facility] per his request as he was not able to ride [facility] until results were back and negative. 07/02/2020 @2368.
== END 2020-06-28 17:34 | disposition home or self-care (01) ==
PROVIDERS: Emergency Provider Emergency Medicine; PCP Family Medicine
DX: J45.901 Unspecified asthma with (acute) exacerbation (principal); R09.02 Hypoxemia; F17.210 Nicotine dependence, cigarettes, uncomplicated; Z03.818 Encounter for observation for suspected exposure to other biological agents ruled out
CPT/HCPCS: 36415; 80053; 94640; 96361; 96365; 96366; 96375; 99285; U0003; 71045; 85025; 99284; J2930; J7613; J7620

== ENCOUNTER 2020-08-04 13:21 | Emergency (ER) | payer MEDICAID, SELFPAY ==
[2020-08-04] VITALS (24 sets, daily range): BP systolic 115–191; BP diastolic 48–154; PULSE 73–117; RESP 4–48; TEMP 36.8; O2SAT 88–100
--- NOTE | 2020-08-04 13:15 | RT.EKG_ITS ---
APPROVED REPORT Exam: Resting ECG Patient Location: E HR:96 bpm ECG Measurements Heart Rate 96 AXIS CO 129 P 79 QRSd 89 QRS -15 QT 320 T 83 QTc 405 Conclusion Sinus rhythm...normal P axis, V-rate 60- 99 Right atrial enlargement...P>0.25mV 2 lds or<-0.24mV aVR/aVL Abnrm R prog, consider ASMI or lead placement...Q >30mS, diminished R, V1-V2 I have reviewed and interpreted ECG and agree with software generated interpretation.
--- NOTE | 2020-08-04 13:36 | ED.GENADUL_ITS ---
Discharge Plan Disposition Patient Disposition: HOME Condition: Improving Discharge Details Clinical Impression: Acute asthma exacerbation Primary Care Provider: Carla Torres ED Provider: Sheela Muhammad Home Meds and New Rx's Prescriptions: New prednisone 20 mg tablet See Rx Instructions .ROUTE .COMPLEX Qty: 18 RF: 0 montelukast [Singulair] 10 mg tablet 10 mg PO DAILY Qty: 30 RF: 0 Continued cetirizine 10 MG tablet,chewable 10 mg PO DAILY RF: 0 ibuprofen 800 MG tablet 800 mg PO Q8H PRN PRNQty: 60 RF: 0 ipratropium-albuterol 0.5 mg-3 mg(2.5 mg base)/3 mL solution for nebulization 3 ml IH Q6H Qty: 90 RF: 2 azithromycin 250 mg tablet See Rx Instructions .ROUTE .COMPLEX Qty: 6 RF: 0 ipratropium-albuterol 3 ML solution for nebulization 3 ml UPD PRN PRNQty: 180 RF: 0 fluticasone propion-salmeterol [Advair Diskus] 1 PUFF blister with device 2 ea Inhalation BID Qty: 60 RF: 0 levalbuterol tartrate [Xopenex HFA] 1 PUFF HFA aerosol inhaler 2 puff Inhalation PRN PRN (Reason: shortness of breath or wheezing) Qty: 15 RF: 2 Discharge Instructions Instructions: Asthma (ED) Additional Instructions: Drink plenty of fluids and get plenty of rest. Use your albuterol inhaler and nebulizer machine as needed and directed. Take the steroids until finished. Start taking your Advair that you have at home and restart the Singulair prescription. Follow-up with your primary care doctor in 1 week. Return to the emergency department with any worsening or new concerning symptoms. Discharge Data Discharge Date/Time-TO BE ENTERED AT DEPARTURE: 08/04/20 15:34 Discharge Physician: Sheela Muhammad Medical Decision Making 8671 -- 29-year-old male with a history of asthma presents with shortness of breath since this morning consistent with asthma exacerbation. History of 3 previous intubations. Heart rate tachycardic. Respiratory rate 30s to 40s. Oxygen saturation 88 to 91% on room air. Patient placed on 2 L by nurse. Patient in tripod positioning using accessory muscles with wheezing and rhonchi throughout. Start duo nebs, albuterol, 125 Solu-Medrol, 2 g magnesium and IV fluids ordered. EKG notes a rate of 96, sinus with no acute ST findings. 1400 --patient reassessed and he feels much better. Oxygen saturation 99% on [address] on room air and reassess. 1430 --patient reassessed and he states he feels 100% better. Wheezing significantly improved but lung sounds still appear diminished. Oxygen saturation 91% on room air. Will give another 5 mg neb and reassess. 1510 --patient ambulated around the ED and felt much better with oxygen saturation 95% on room air which she states is his baseline. Lung sounds significantly improved. Patient requesting to go home. We will send with prescription for steroids and Singulair. He states his mom will bring him his nebulizer and he has plenty of albuterol inhaler and solution at home. Advised to follow up with the primary care doctor for re-evaluation. Usual and customary return precautions given prior to discharge. Medical Records Medical records reviewed: Yes I reviewed the patient's medical records. ECG Data Attestation: I personally reviewed and interpreted this ECG (s) as follows: Interpretation: Rate of 96, sinus, no acute ST elevation or depression. TX 129. QRS 89. QTc 405. HPI General Mode of arrival: ambulatory . Date/Time Provider Initiated Documentation: 08/04/20 13:24 . Limitations to Documentation: no limitations . Information obtained by: patient . HPI Narrative: Patient is a 29-year-old male with a history of asthma with 3 previous intubations due to asthma exacerbations presents with shortness of breath since this morning. Patient denies any fever or significant cough. He states he has been using his Ventolin inhaler without relief. He states he recently moved out of his apartment and has not had access to his nebulizer machine which usually helps him. He does not take his Advair which is prescribed as he feels that it does not help him. He denies any recent travel, recent known sick contacts. Related Data Home Medications Medication Instructions Recorded Confirmed cetirizine 10 mg PO DAILY 01/02/13 06/28/20 ibuprofen 800 mg PO Q8H PRN PRN #60 tab 03/30/13 06/28/20 fluticasone propion-salmeterol 2 ea INHALATION BID #60 each 04/14/20 06/28/20 [Advair Diskus] ipratropium-albuterol 3 ml UPD PRN PRN #180 ml 04/14/20 06/28/20 levalbuterol tartrate [Xopenex HFA] 2 puff INHALATION PRN PRN #15 gm 04/14/20 06/28/20 ipratropium-albuterol 3 ml IH Q6H #90 ml 06/05/20 06/28/20 azithromycin See Rx Instructions .ROUTE 06/28/20 .COMPLEX #6 tab montelukast [Singulair] 10 mg PO DAILY #30 tab 08/04/20 prednisone See Rx Instructions .ROUTE 08/04/20 .COMPLEX #18 tab Previous Rx's Medication Instructions Recorded ibuprofen 800 mg PO Q8H PRN PRN #60 tab 03/30/13 fluticasone propion-salmeterol 2 ea INHALATION BID #60 each 04/14/20 [Advair Diskus] ipratropium-albuterol 3 ml UPD PRN PRN #180 ml 04/14/20 levalbuterol tartrate [Xopenex HFA] 2 puff INHALATION PRN PRN #15 gm 04/14/20 ipratropium-albuterol 3 ml IH Q6H #90 ml 06/05/20 azithromycin See Rx Instructions .ROUTE 06/28/20 .COMPLEX #6 tab montelukast [Singulair] 10 mg PO DAILY #30 tab 08/04/20 prednisone See Rx Instructions .ROUTE 08/04/20 .COMPLEX #18 tab Allergies Allergy/AdvReac Type Severity Reaction Status Date / Time No Known Allergies Allergy Unverified 08/04/20 13:48 General Stated Complaint: SOB HEIKE: 2 Review of Systems All systems reviewed & are unremarkable except as noted in HPI and below Constitutional Constitutional: Reports as per HPI, Denies chills and Denies fever(s) Eyes Eyes: Denies blurry vision ENT Ears, Nose, Mouth, and Throat: Denies dizziness, Denies sore throat and Denies throat swelling Cardiovascular Cardiovascular: Denies chest pain and Reports dyspnea Respiratory Respiratory: Denies cough and Reports dyspnea Gastrointestinal Gastrointestinal: Denies abdominal pain, Denies diarrhea and Denies vomiting Genitourinary Genitourinary: Denies hematuria and Denies dysuria Musculoskeletal Musculoskeletal: Denies back pain and Denies numbness Integumentary/Breasts Skin/Breast: Denies lesions and Denies rash Neurologic Neurologic: Denies dizziness, Denies localized weakness and Denies numbness Allergic/Immunologic Allergic/Immunologic: Denies throat swelling [facility] Medical History (Updated 08/04/20 @ 15:16 by Sheela Muhammad DO) Asthma Social History Smoking/Tobacco Use Status: Current every day Tobacco Type: cigarettes Alcohol Intake: never Drug use: Occasionally Substance use type: former substance user, marijuana and heroin Do you feel safe at home: Yes Do you feel safe in your relationship?: Yes Exam Const General: cooperative, no acute distress and in distress respiratory Orientation: alert, awake and oriented x3 HENMT Head: normal to inspection Face and sinus: normal facial exam Eyes General: appearance normal, both eyes and all related structures Pupils: PERRL EOM: EOM intact bilaterally Neck Neck: normal visual inspection and No submandibular swelling Lymphatic: no lymphadenopathy noted Chest Chest: normal inspection of the chest and no tenderness Resp Effort & Inspection: not able to speak in complete sentences, retractions supraclavicular, tachypneic, tripod positioning and uses accessory muscles Auscultation: rhonchi upper bilaterally and lower bilaterally and wheezes expiratory wheezes and inspiratory wheezes Cardio Rate: tachycardic Rhythm: regular rhythm GI Inspection: normal to inspection Palpation: soft, not firm, not rigid and nontender Auscultation: normal bowel sounds Skin General skin exam: no rashes or lesions noted Neuro General: patient alert, patient awake and patient oriented x3 Cognition: normal cognition Speech: speech normal Motor: muscle tone normal throughout Sensory Exam: no sensory deficits noted Extrem General: normal to inspection, full ROM, capillary refill normal, no calf tenderness bilaterally and no edema Psych Appearance: grossly normal Mental Status: mental status grossly normal Speech and Movement: speech and movement normal Affect: normal affect Course Vital Signs Vital signs: Vital Signs Temperature 98.2 F 08/04/20 13:27 Pulse 117 H 08/04/20 13:27 Blood Pressure 191/154 H 08/04/20 13:27 Pulse Oximetry 93 08/04/20 13:27 Temperature 98.2 F 08/04/20 13:27 Temperature Source Skin 08/04/20 13:27 Pulse 117 H 08/04/20 13:27 Blood Pressure 191/154 H 08/04/20 13:27 Blood Pressure Position Sitting 08/04/20 13:27 Pulse Oximetry 93 08/04/20 13:27 Oxygen Delivery Method Nasal Cannula 08/04/20 13:27 Oxygen Flow Rate 2 08/04/20 13:27
[2020-08-04] MEDS: Albuterol/Ipratropium 3 ML UPD VIAL 6 ML UPD (13:38)
[2020-08-04] MEDS: Normal Saline 1,000 ML 1000 ML IV (13:44)
[2020-08-04] MEDS: methylPREDNISolone SUCC 125 MG VIAL IVP (13:44)
[2020-08-04] MEDS: ACETAMINOPHEN 1,000 MG/100 ML BTL 400 MG (13:57)
[2020-08-04] MEDS: Albuterol 2.5 MG/3 ML INH SOLN VIAL 7.5 MG UPD (13:59)
[2020-08-04] MEDS: Albuterol 2.5 MG/3 ML INH SOLN VIAL 5 MG UPD (14:43)
== END 2020-08-04 15:34 | disposition home or self-care (01) ==
PROVIDERS: Emergency Provider Physician Assistant; PCP Family Medicine
DX: J45.901 Unspecified asthma with (acute) exacerbation (principal); R09.02 Hypoxemia; F17.210 Nicotine dependence, cigarettes, uncomplicated
CPT/HCPCS: 93005; 94640; 96361; 96374; 96375; 99284; 93010; 99285; J0131; J2930; J7613; J7620

== ENCOUNTER 2020-09-22 09:35 | Emergency (ER) | payer MEDICAID, SELFPAY ==
[2020-09-22] VITALS (18 sets, daily range): BP systolic 104–127; BP diastolic 54–81; PULSE 76–114; RESP 4–26; TEMP 36.3; O2SAT 86–97
--- NOTE | 2020-09-22 09:36 | W.ED.GENAD ---
Discharge Plan Disposition Patient Disposition: HOME Condition: Improving Discharge Details Clinical Impression: Asthma exacerbation Primary Care Provider: Carla Torres ED Provider: Sheela Muhammad Home Meds and New Rx's Prescriptions: New prednisone 20 mg tablet See Rx Instructions .ROUTE .COMPLEX Qty: 12 RF: 0 albuterol sulfate 2.5 mg /3 mL (0.083 %) solution for nebulization 2.5 mg IH Q4H PRN (Reason: shortness of breath or wheezing) Qty: 75 RF: 0 levofloxacin 750 mg tablet 750 mg PO DAILY 5 Days Qty: 5 RF: 0 No Action cetirizine 10 MG tablet,chewable 10 mg PO DAILY RF: 0 ibuprofen 800 MG tablet 800 mg PO Q8H PRN PRNQty: 60 RF: 0 ipratropium-albuterol 0.5 mg-3 mg(2.5 mg base)/3 mL solution for nebulization 3 ml IH Q6H Qty: 90 RF: 2 ipratropium-albuterol 3 ML solution for nebulization 3 ml UPD PRN PRNQty: 180 RF: 0 fluticasone propion-salmeterol [Advair Diskus] 1 PUFF blister with device 2 ea Inhalation BID Qty: 60 RF: 0 levalbuterol tartrate [Xopenex HFA] 1 PUFF HFA aerosol inhaler 2 puff Inhalation PRN PRN (Reason: shortness of breath or wheezing) Qty: 15 RF: 2 montelukast [Singulair] 10 mg tablet 10 mg PO DAILY Qty: 30 RF: 0 Discharge Instructions Instructions: Asthma (ED) Additional Instructions: Drink plenty of fluids and get plenty of rest. Use the albuterol inhaler and albuterol nebulizer treatments as needed and directed. Take the steroids until finished. If your symptoms do not improve or worsen or you develop fever over the next few days, you can start the antibiotics. You will receive a call from care management regarding a follow-up appointment to establish care with a new primary care doctor near your residence and for reevaluation after your recent emergency department visit. Return to the emergency department with any worsening or new concerning symptoms. Discharge Data Discharge Date/Time-TO BE ENTERED AT DEPARTURE: 09/22/20 11:31 Discharge Physician: Sheela Muhammad Medical Decision Making 0940 -- 30-year-old male with a history of asthma presents for cough with green sputum and shortness of breath for the past week. Patient appears to have mild work of breathing with diffuse wheezing throughout. Oxygen saturation 87 to 90% on room air. Most likely acute asthma exacerbation. Will place an IV, bolus IV fluids, Solu-Medrol, DuoNeb and albuterol and check a portable chest x-ray to rule out pneumonia. 1010 --patient reassessed -he states he feels approximately 90% better. Still has wheezing throughout but does not appear in any respiratory distress and is speaking in full sentences. Oxygen saturation 93% on room air initially and then did decrease to 89 to 90%. Will obtain a peak flow, give another DuoNeb. Still awaiting portable chest x-ray. 1100 --patient reassessed and he feels significantly better and is requesting to go home. Portable chest x-ray negative. Peak flow 200s which is usually his baseline. We will send home with albuterol inhaler, nebulizer solution and oral steroids. He is requesting an antibiotic. Advised to hold on antibiotics unless symptoms do not improve or worsen. Patient has a primary care doctor but far away from his area where he recently moved. Patient placed on care management list to arrange for a new primary care doctor to establish care and for reevaluation. Usual and customary return precautions given prior to discharge. Medical Records Medical records reviewed: Yes I reviewed the patient's medical records. Imaging Data Radiologic Study: Radiologist's impression: XR Chest, 1 View Exam date and time: 09/22/2020 11:05 AM Age: 30 years old Clinical indication: Other: Cough, SOB, R/O acute disease TECHNIQUE: Imaging protocol: XR of the chest Views: 1 view. COMPARISON: CR XR PORTABLE CHEST AP 06/28/2020 11:44 AM FINDINGS: Lungs: Clear lungs. Pleural space: No pneumothorax. No sizeable effusion. Heart/Mediastinum: Cardiomediastinal silhouette is within normal limits. Bones/joints: No acute displaced fracture or dislocation. IMPRESSION: No acute cardiopulmonary process. HPI General Mode of arrival: ambulatory. Date/Time Provider Initiated Documentation: 09/22/20 09:36. Limitations to Documentation: no limitations. Information obtained by: patient. HPI Narrative: Patient is a 30-year-old male with a history of asthma presents for cough with green sputum and difficulty breathing for the past week. States he feels consistent with his usual asthma exacerbation consistent with weather change this week. Patient states he ran out of his duo nebs last night and attempted to get a refill today but was unable to. Patient smokes cigarettes and marijuana. Patient was last seen here in July for asthma exacerbation and was treated with oral steroids and symptoms completely improved until the past week. He denies any known sick contacts or recent exposure to coronavirus. He denies any fever or chest pain. Patient has a history of 3 intubations in the past, the last occurring several years ago. Related Data Home Medications Medication Instructions Recorded Confirmed cetirizine 10 mg PO DAILY 01/02/13 09/22/20 ibuprofen 800 mg PO Q8H PRN PRN #60 tab 03/30/13 06/28/20 fluticasone propion-salmeterol 2 ea INHALATION BID #60 each 04/14/20 09/22/20 [Advair Diskus] ipratropium-albuterol 3 ml UPD PRN PRN #180 ml 04/14/20 09/22/20 levalbuterol tartrate [Xopenex HFA] 2 puff INHALATION PRN PRN #15 gm 04/14/20 09/22/20 ipratropium-albuterol 3 ml IH Q6H #90 ml 06/05/20 09/22/20 montelukast [Singulair] 10 mg PO DAILY #30 tab 08/04/20 09/22/20 albuterol sulfate 2.5 mg IH Q4H PRN #75 ml 09/22/20 levofloxacin 750 mg PO DAILY 5 Days #5 tab 09/22/20 prednisone See Rx Instructions .ROUTE 09/22/20 .COMPLEX #12 tab Previous Rx's Medication Instructions Recorded ibuprofen 800 mg PO Q8H PRN PRN #60 tab 03/30/13 fluticasone propion-salmeterol 2 ea INHALATION BID #60 each 04/14/20 [Advair Diskus] ipratropium-albuterol 3 ml UPD PRN PRN #180 ml 04/14/20 levalbuterol tartrate [Xopenex HFA] 2 puff INHALATION PRN PRN #15 gm 04/14/20 ipratropium-albuterol 3 ml IH Q6H #90 ml 06/05/20 montelukast [Singulair] 10 mg PO DAILY #30 tab 08/04/20 albuterol sulfate 2.5 mg IH Q4H PRN #75 ml 09/22/20 levofloxacin 750 mg PO DAILY 5 Days #5 tab 09/22/20 prednisone See Rx Instructions .ROUTE 09/22/20 .COMPLEX #12 tab Allergies Allergy/AdvReac Type Severity Reaction Status Date / Time No Known Allergies Allergy Unverified 09/22/20 09:45 General HEIKE: 2 Review of Systems All systems reviewed & are unremarkable except as noted in HPI and below Constitutional Constitutional: Reports as per HPI, Denies chills and Denies fever(s) Eyes Eyes: Denies blurry vision ENT Ears, Nose, Mouth, and Throat: Denies dizziness, Denies sore throat and Denies throat swelling Cardiovascular Cardiovascular: Denies chest pain and Reports dyspnea Respiratory Respiratory: Reports cough and Reports dyspnea Gastrointestinal Gastrointestinal: Denies abdominal pain, Denies diarrhea and Denies vomiting Genitourinary Genitourinary: Denies hematuria and Denies dysuria Musculoskeletal Musculoskeletal: Denies back pain and Denies numbness Integumentary/Breasts Skin/Breast: Denies lesions and Denies rash Neurologic Neurologic: Denies dizziness, Denies localized weakness and Denies numbness Allergic/Immunologic Allergic/Immunologic: Denies throat swelling [facility] Medical History (Updated 09/22/20 @ 10:57 by Sheela Muhammad DO) Asthma Social History Smoking/Tobacco Use Status: Current every day Tobacco Type: cigarettes Smoking risk assessment performed?: Yes Alcohol Intake: never Drug use: Occasionally Substance use type: former substance user, marijuana and heroin Do you feel safe at home: Yes Do you feel safe in your relationship?: Yes Exam Const General: cooperative, healthy appearing and acute distress respiratory (mild) HENMT Head: normal to inspection Face and sinus: normal facial exam Eyes General: appearance normal, both eyes and all related structures EOM: EOM intact bilaterally Neck Neck: normal visual inspection and No submandibular swelling Lymphatic: no lymphadenopathy noted Chest Chest: normal inspection of the chest and no tenderness Resp Effort & Inspection: normal respiratory effort, able to speak in complete sentences (4-5 word sentences), no nasal flaring, no tracheal deviation and uses accessory muscles (Minimal) Auscultation: clear to auscultation bilaterally Cardio Rate: tachycardic Rhythm: regular rhythm GI Inspection: normal to inspection Palpation: soft, not firm, not rigid and nontender Auscultation: normal bowel sounds Skin General skin exam: no rashes or lesions noted Neuro General: patient alert, patient awake and patient oriented x3 Cognition: normal cognition Speech: speech normal Motor: muscle tone normal throughout Sensory Exam: no sensory deficits noted Extrem General: normal to inspection, full ROM, capillary refill normal, no calf tenderness bilaterally and no edema Psych Appearance: grossly normal Mental Status: mental status grossly normal Speech and Movement: speech and movement normal Affect: normal affect
[2020-09-22] MEDS: Normal Saline Flush 10 ML SYR IVP (09:40)
[2020-09-22] MEDS: Normal Saline 1,000 ML 1000 ML IV (09:45)
[2020-09-22] MEDS: methylPREDNISolone SUCC 125 MG VIAL IVP (09:45)
[2020-09-22] MEDS: Albuterol/Ipratropium 3 ML UPD VIAL UPD (09:50)
[2020-09-22] MEDS: Albuterol 2.5 MG/3 ML INH SOLN VIAL 5 MG UPD (10:09)
[2020-09-22] MEDS: Albuterol/Ipratropium 3 ML UPD VIAL (10:12)
--- NOTE | 2020-09-22 11:04 | DI.RAD_ITS ---
EXAM: XR PORTABLE CHEST AP CLINICAL HISTORY: cough, sob, r/o acute disease TECHNIQUE: 2D digital imaging was performed. COMPARISON: CR XR PORTABLE CHEST AP from 06/28/2020 FINDINGS: MEDIASTINUM: Normal. HEART: Normal. PULMONARY VASCULATURE: Normal. LUNGS: Clear. PLEURAL SPACE: No pleural effusion or pneumothorax. BONE:Within normal limits for the patient's age. OTHER FINDINGS:Normal. IMPRESSION: No acute pulmonary findings. DATA REPOSITORY: RADIATION DOSE DELIVERED:
--- NOTE | 2020-09-22 11:11 | DI.VRAD_ITS ---
PROCEDURE INFORMATION: Exam: XR Chest, 1 View Exam date and time: 09/22/2020 11:05 AM Age: 30 years old Clinical indication: Other: Cough, SOB, R/O acute disease TECHNIQUE: Imaging protocol: XR of the chest Views: 1 view. COMPARISON: CR XR PORTABLE CHEST AP 06/28/2020 11:44 AM FINDINGS: Lungs: Clear lungs. Pleural space: No pneumothorax. No sizeable effusion. Heart/Mediastinum: Cardiomediastinal silhouette is within normal limits. Bones/joints: No acute displaced fracture or dislocation. IMPRESSION: No acute cardiopulmonary process. Dictated and Authenticated by: Joe Hair MD. Ordering:DARYA Coker MD
[2020-09-22] MEDS: Albuterol HFA 8 GM 60 PUFF INH IH (11:15)
--- NOTE | 2020-09-22 11:37 | NUR.NOTE ---
2 spacers given-reg and a pocket, peak flow meter given.Nursing Note:
--- NOTE | 2020-09-22 12:34 | NUR.NOTE ---
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 Patient new to area,needs PCP for follow up, Cande Mathias
== END 2020-09-22 11:31 | disposition home or self-care (01) ==
PROVIDERS: Emergency Provider Physician Assistant; PCP Family Medicine
DX: R09.02 Hypoxemia (principal); J45.901 Unspecified asthma with (acute) exacerbation; F17.210 Nicotine dependence, cigarettes, uncomplicated; F12.10 Cannabis abuse, uncomplicated
CPT/HCPCS: 94640; 96361; 96374; 99284; 71045; 99285; J2930; J7613; J7620

== ENCOUNTER 2021-09-02 12:12 | Emergency (ER) | payer MEDICAID, SELFPAY ==
[2021-09-02 12:18] VITALS: BP 114/74; PULSE 84; RESP 20; TEMP 36.8; O2SAT 95
--- NOTE | 2021-09-02 12:31 | W.ED.GENAD ---
Discharge Plan Disposition Patient Disposition: HOME Condition: Stable Discharge Details Clinical Impression: Asthma exacerbation Primary Care Provider: Carla Torres ED Provider: Renetta Hurtado Home Meds and New Rx's Prescriptions: New prednisone 50 mg tablet 50 mg PO DAILY Qty: 4 RF: 0 doxycycline hyclate 100 mg tablet 100 mg PO BID Qty: 14 RF: 0 Continued cetirizine 10 MG tablet,chewable 10 mg PO DAILY RF: 0 ibuprofen 800 MG tablet 800 mg PO Q8H PRN PRNQty: 60 RF: 0 ipratropium-albuterol 0.5 mg-3 mg(2.5 mg base)/3 mL solution for nebulization 3 ml IH Q6H Qty: 90 RF: 2 prednisone 20 mg tablet See Rx Instructions .ROUTE .COMPLEX Qty: 12 RF: 0 albuterol sulfate 2.5 mg /3 mL (0.083 %) solution for nebulization 2.5 mg IH Q4H PRN (Reason: shortness of breath or wheezing) Qty: 75 RF: 0 ipratropium-albuterol 3 ML solution for nebulization 3 ml UPD PRN PRNQty: 180 RF: 0 fluticasone propion-salmeterol [Advair Diskus] 1 PUFF blister with device 2 ea Inhalation BID Qty: 60 RF: 0 levalbuterol tartrate [Xopenex HFA] 1 PUFF HFA aerosol inhaler 2 puff Inhalation PRN PRN (Reason: shortness of breath or wheezing) Qty: 15 RF: 2 montelukast [Singulair] 10 mg tablet 10 mg PO DAILY Qty: 30 RF: 0 Discharge Instructions Instructions: Asthma (ED) Additional Instructions: Your lungs sound diffusely wheezy consistent with asthma exacerbation. You received your first dose of prednisone here today. Your next dose will be due tomorrow. I [facility]. As you requested. With your increased cough, I am concerned that you may also be developing a pneumonia and have also sent a prescription for antibiotic to the pharmacy. Even if symptoms improve, please take the entire course. Please continue with your inhaler and nebulizer as previously scheduled. Please stop smoking. Encourage hydration. I have sent a referral for local primary care in the past you be able to follow-up within the next week for reevaluation. If you develop fever/chills, increased work of breathing, shortness of breath, chest pain or other new/worsening symptoms please seek care urgently once again. We have tested you for COVID-19. This test is pending and should be resulted in the next few days. Please quarantine until these results have returned Discharge Data Discharge Date/Time-TO BE ENTERED AT DEPARTURE: 09/02/21 14:48 Medical Decision Making Patient is a pleasant 30 year old male presenting today with c/c of asthma exacerbation. States that he has exacerbations this time of year. States he is an active smoker. He has been using his inhaler and nebulizer but despite this continues to feel wheezy. Has had increased cough with yellow sputum production. He feels he would beneift from steroids and abx. Has had severe asthma in the past requiring intubation. On exam, patient appears non toxic. Pulmonary exam concerning for diffuse wheezing. Normal O2, no respiratory distress. Normal cardiac exam. Normal HEENT exam. No edema in BLE or calf pain. History is concerning primairly for asthma exacerbation, likely in the setting of acute URI. He has not been vaccinated against covid. Will obtain CXR for evaluation. He does not appear septic. Hx and exam not consistent with PE, patient is PERC negative. XR without acute cardiopulmonary findings. I remain concerned for asthma exacerbation. With his history, I feel that treatment for possible pneumonia with his increased cough/sputum production, is appropriate. Given first dose of steroids, will prescribe abx. He does not have a local PCP, will have care management arrange for close f/u He states he has enough inhaler and neb at home. Strict return precautions discussed, all of his questions and concerns were addressed, htey are in agreement with this plan. HPI General Mode of arrival: ambulatory. Date/Time Provider Initiated Documentation: 09/02/21 12:31. Limitations to Documentation: no limitations. Information obtained by: patient and RN notes reviewed. History of Present Illness 30 year old M presents to the emergency department with the chief complaint of SOB, described as moderate and similar to prior episodes, Quality is described as other (denies any CP), and is localized to the chest. Patient started experiencing this day(s) (2) and it has been constant. Medication improves symptom(s), (hx of asthma, has used inhaler with monimal relief) No exacerbating factors reported . Patient notes cough and shortness of breath; denies chest pain, fever/chills, nausea/vomiting, rash and weakness. Patient did receive the following treatments prior to arrival, other (inhaler) Related Data Home Medications Medication Instructions Recorded Confirmed cetirizine 10 mg PO DAILY 01/02/13 09/22/20 ibuprofen 800 mg PO Q8H PRN PRN #60 tab 03/30/13 06/28/20 fluticasone propion-salmeterol 2 ea INHALATION BID #60 each 04/14/20 09/22/20 [Advair Diskus] ipratropium-albuterol 3 ml UPD PRN PRN #180 ml 04/14/20 09/22/20 levalbuterol tartrate [Xopenex HFA] 2 puff INHALATION PRN PRN #15 gm 04/14/20 09/22/20 ipratropium-albuterol 3 ml IH Q6H #90 ml 06/05/20 09/22/20 montelukast [Singulair] 10 mg PO DAILY #30 tab 08/04/20 09/22/20 albuterol sulfate 2.5 mg IH Q4H PRN #75 ml 09/22/20 prednisone See Rx Instructions .ROUTE 09/22/20 .COMPLEX #12 tab doxycycline hyclate 100 mg PO BID #14 tab 09/02/21 prednisone 50 mg PO DAILY #4 tab 09/02/21 Previous Rx's Medication Instructions Recorded ibuprofen 800 mg PO Q8H PRN PRN #60 tab 03/30/13 fluticasone propion-salmeterol 2 ea INHALATION BID #60 each 04/14/20 [Advair Diskus] ipratropium-albuterol 3 ml UPD PRN PRN #180 ml 04/14/20 levalbuterol tartrate [Xopenex HFA] 2 puff INHALATION PRN PRN #15 gm 04/14/20 ipratropium-albuterol 3 ml IH Q6H #90 ml 06/05/20 montelukast [Singulair] 10 mg PO DAILY #30 tab 08/04/20 albuterol sulfate 2.5 mg IH Q4H PRN #75 ml 09/22/20 prednisone See Rx Instructions .ROUTE 09/22/20 .COMPLEX #12 tab doxycycline hyclate 100 mg PO BID #14 tab 09/02/21 prednisone 50 mg PO DAILY #4 tab 09/02/21 Allergies Allergy/AdvReac Type Severity Reaction Status Date / Time No Known Allergies Allergy Unverified 09/22/20 09:45 General Stated Complaint: SOB HEIKE: 3 Review of Systems Constitutional Constitutional: Reports as per HPI, Denies chills, Denies fever(s) and Denies headache(s) Eyes Eyes: Reports as per HPI, Denies eye discharge and Denies irritation ENT Ears, Nose, Mouth, and Throat: Reports as per HPI and Denies headache(s) Cardiovascular Cardiovascular: Reports as per HPI, Denies chest pain, Reports dyspnea and Reports dyspnea on exertion Respiratory Respiratory: Reports as per HPI, Reports change in phlegm color, Reports cough, Denies pain on inspiration, Denies pain with cough, Reports dyspnea, Reports dyspnea on exertion and Reports wheezing Gastrointestinal Gastrointestinal: Reports as per HPI, Denies abdominal pain, Denies change in bowel habits, Denies nausea and Denies vomiting Integumentary/Breasts Skin/Breast: Reports as per HPI and Denies rash Neurologic Neurologic: Reports as per HPI and Denies headache(s) Allergic/Immunologic Allergic/Immunologic: Reports wheezing [facility] Active Problem List (Updated 09/02/21 @ 14:25 by KARYN Wilson) Asthma exacerbation (Acute) Medical History (Updated 09/02/21 @ 14:25 by KARYN Wilson) Asthma Social History Smoking/Tobacco Use Status: Current every day Tobacco Type: cigarettes Smoking risk assessment performed?: Yes Alcohol Intake: never Drug use: Occasionally Substance use type: former substance user, marijuana and heroin Do you feel safe at home: Yes Do you feel safe in your relationship?: Yes Exam Const General: cooperative, healthy appearing, comfortable, no acute distress, well developed and well groomed Nutritional Appearance: average body habitus and well nourished Orientation: alert and awake [facility] Head: normal to inspection, normocephalic and atraumatic Ears: hearing grossly normal bilaterally, external ears normal and TM's normal bilaterally General nose exam: external nose normal and nares normal Face and sinus: normal facial exam, sinuses nontender and face symmetric Mouth: oral mucosae normal, lip normal, tongue normal, oropharynx normal and moist mucous membranes Teeth and gingiva: dentition normal Throat: posterior oropharynx normal, tonsils normal and uvula midline Eyes General: appearance normal, both eyes and all related structures Neck Neck: normal visual inspection, full ROM, no lymphadenopathy and no meningeal signs Resp Effort & Inspection: normal respiratory effort, able to speak in complete sentences and no respiratory distress Auscultation: not clear to auscultation bilaterally, no rales, no rhonchi and wheezes (diffuse wheezing) expiratory wheezes Cardio Rate: regular rate Rhythm: regular rhythm Heart Sounds: S1 normal and S2 normal Skin General skin exam: no rashes or lesions noted Neuro General: patient alert and patient awake Cognition: normal cognition Speech: speech normal Gait: normal gait Psych Appearance: grossly normal and well kempt Mental Status: mental status grossly normal Speech and Movement: speech and movement normal Course Vital Signs Vital signs: Vital Signs Temperature 36.8 C 09/02/21 12:18 Pulse 84 09/02/21 12:18 Respiratory Rate 20 09/02/21 12:18 Blood Pressure 114/74 09/02/21 12:18 Pulse Oximetry 95 09/02/21 12:18 Temperature 36.8 C 09/02/21 12:18 Temperature Source Skin 09/02/21 12:18 Pulse 84 09/02/21 12:18 Respiratory Rate 20 09/02/21 12:18 Respiratory Effort 09/02/21 12:21 Blood Pressure 114/74 09/02/21 12:18 Blood Pressure Position Sitting 09/02/21 12:18 Pulse Oximetry 95 09/02/21 12:18 Oxygen Delivery Method Room Air 09/02/21 12:18 Oxygen Flow Rate 0 09/02/21 12:18 Pain Level 0 09/02/21 12:18
--- NOTE | 2021-09-02 13:00 | DI.RAD_ITS ---
Exam(s) XR PORTABLE CHEST AP EXAM: XR PORTABLE CHEST AP CLINICAL HISTORY: SOB, cough TECHNIQUE: 2D digital imaging was performed. COMPARISON: CR XR PORTABLE CHEST AP from 06/28/2020 CR XR PORTABLE CHEST AP from 06/28/2020 FINDINGS: LUNGS: Hyperinflated but clear. No pleural abnormality seen. HEART: Normal. MEDIASTINUM: Normal. BONES: Unremarkable. IMPRESSION: No acute pulmonary findings. DATA REPOSITORY: RADIATION DOSE DELIVERED:
[2021-09-02] MEDS: predniSONE 20 MG TAB 40 MG PO (13:33)
--- NOTE | 2021-09-02 14:28 | NUR.NOTE ---
Nursing Note: Referral given to Care Management to establish care, asthma, within 1 week with a PCP. Cande Mathias
[2021-09-02 14:30] VITALS: RESP 18
[2021-09-02] MEDS: Inhaler, Assist Device 1 EACH MC (14:45)
[2021-09-02] MEDS: Albuterol HFA 8 GM 60 PUFF INH IH (14:45)
--- NOTE | 2021-09-03 09:32 | CMPROGNOTE_ITS ---
- If Service Date Differs Date of service: 09/03/21 Time of Service: 09:32 Care Management Progress Note Ernesto is seen in the ED for asthma exacerbation. At the request of ED provider, WHIT contacts patient to inquire if Carla Ruiz MD, is still his PCP. WHIT speaks with patient's mom, Iliana Bacon, who advises that Ori is sleeping. Iliana states that Ori used to see Carla Ruiz MD, but Dr. Ruiz has since left the practice and Ori has moved in with his mom in [place]. Iliana says Ori doesn't drive. She takes him to appointments and it would be easier if he had a local doctor. WHIT discusses the process for transferring care to a local PCP. 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 She is also made aware that Ori can go to either of the [facility] when in need of non-urgent medical treatment.
[2021-09-04 12:45] LABS: COVID-19 RT-PCR UVMMC Result Negative (Negative)
--- NOTE | 2021-09-06 08:43 | NUR.NOTE ---
negative covid result relayed to pt via phone-spoke to his mom.Nursing Note:
== END 2021-09-02 14:48 | disposition home or self-care (01) ==
PROVIDERS: Emergency Provider Physician Assistant; PCP Family Medicine
DX: J45.901 Unspecified asthma with (acute) exacerbation (principal); F17.210 Nicotine dependence, cigarettes, uncomplicated
CPT/HCPCS: 99283; U0003; 71045; J7512

== ENCOUNTER 2021-10-10 15:17 | Outpatient (REF) | payer MEDICAID, SELFPAY ==
[2021-10-11 15:46] LABS: COVID-19 RT-PCR UVMMC Result Negative (Negative)
== END 2021-10-10 15:18 | disposition home or self-care (01) ==
LOC: LBN 15:17
PROVIDERS: PCP Family Medicine; Visit Provider Physician Assistant Medical
DX: Z20.822 Contact with and (suspected) exposure to COVID-19 (principal); R05.8 Other specified cough
CPT/HCPCS: U0003

== ENCOUNTER 2021-10-25 22:14 | Outpatient (REF) | payer MEDICAID, SELFPAY ==
[2021-10-27 15:43] LABS: COVID-19 RT-PCR UVMMC Result Negative (Negative)
== END 2021-10-25 22:15 | disposition home or self-care (01) ==
LOC: LBN 22:14
PROVIDERS: PCP Family Medicine; Visit Provider Physician Assistant Medical
DX: Z20.822 Contact with and (suspected) exposure to COVID-19 (principal); R05.8 Other specified cough; J45.51 Severe persistent asthma with (acute) exacerbation
CPT/HCPCS: U0003

== ENCOUNTER 2021-11-02 07:43 | Emergency (ER) | payer MEDICAID, SELFPAY ==
[2021-11-02] VITALS (72 sets, daily range): BP systolic 115–176; BP diastolic 60–134; PULSE 68–132; RESP 4–34; TEMP 36.7–36.8; O2SAT 87–99
--- NOTE | 2021-11-02 08:15 | RT.EKG_ITS ---
APPROVED REPORT Exam: Resting ECG Reason for Exam: sob Patient Location: E HR:79 bpm ECG Measurements Heart Rate 79 AXIS WA 119 P 30 QRSd 95 QRS 4 QT 362 T 87 QTc 416 Conclusion Sinus rhythm...normal P axis, V-rate 60- 99. Sinus. Normal axis. No STEMI. I have reviewed and interpreted ECG and agree with software generated interpretation.
[2021-11-02] MEDS: Albuterol/Ipratropium 3 ML UPD VIAL 6 ML UPD (08:33)
[2021-11-02] MEDS: methylPREDNISolone SUCC 125 MG VIAL IVP (08:47)
[2021-11-02] MEDS: Normal Saline 1,000 ML 1000 ML IV (08:47)
[2021-11-02 09:05] LABS: Abs Immature Grans 0.02 10^3/uL (0.0-0.06); Absolute Basophil Count 0.08 10^3/uL (0.0-0.2); Absolute Eosinophil Count 0.88 10^3/uL (0.0-0.7); Absolute Lymphocyte Count 1.65 10^3/uL (1.2-3.4); Absolute Monocyte Count 0.68 10^3/uL (0.1-0.8); Absolute Neutrophil Count 3.64 10^3/uL (1.2-6.7); Basophils % 1.2; Eosinophils % 12.7; HCT 53.1 % (40.0-50.0); HGB 16.8 g/dL (13.5-17.5); Immature Grans % 0.3; Lymphocytes % 23.7; MCH 28.3 pg (27.0-33.0); MCHC 31.6 % (32.0-36.0); MCV 89.4 fL (80-95); MPV 10.2 fL (8.0-11.0); Monocytes % 9.8; Neutrophils % 52.3; Nucleated RBC 0 %; Platelet Count 244 10^3/uL (130-400); RBC 5.94 10^6/uL (4.36-5.78); RDW 13.5 % (11.8-14.1); RDW-SD 44.7 fL; WBC 6.95 10^3/uL (4.4-10.8)
[2021-11-02 09:20] LABS: ALT 122 U/L (16-63); AST 44 U/L (15-37); Alkaline Phosphatase 66 U/L (46-116); Anion Gap 1.9 mmol/L (3-11); BUN 13 mg/dL (7-18); Bilirubin, Total 0.3 mg/dL (0.2-1.0); CO2 36.1 mmol/L (21.0-32.0); CREATININE 0.9 mg/dL (0.70-1.30); Calcium 8.8 mg/dL (8.5-10.1); Chloride 100 mmol/L (98-107); Glucose 106 mg/dL (74-106); Potassium 4.3 mmol/L (3.5-5.1); Sodium 138 mmol/L (136-145); Total Protein 7.4 g/dL (6.4-8.2); Troponin I < 50 ng/L (<or=60)
[2021-11-02 09:36] LABS: D-Dimer 148 ng/mlFEU (<500)
[2021-11-02 09:58] LABS: Source Nasal/Nares
--- NOTE | 2021-11-02 10:00 | DI.RAD_ITS ---
Exam(s) XR PORTABLE CHEST AP EXAM: XR PORTABLE CHEST AP CLINICAL HISTORY: shortness of breath TECHNIQUE: 2D digital imaging was performed of the chest. Two images were obtained. AP only views were obtained. COMPARISON: CR XR PORTABLE CHEST AP from 09/02/2021 FINDINGS: MEDIASTINUM: Normal. HEART: Normal. PULMONARY VASCULATURE: Normal. LUNGS: No focal consolidation. PLEURAL SPACE: No pleural effusion or pneumothorax. BONE:Within normal limits for the patient's age. OTHER FINDINGS:Normal. IMPRESSION: No evidence of pneumonia. Follow-up as clinically indicated. DATA REPOSITORY: RADIATION DOSE DELIVERED:
--- NOTE | 2021-11-02 10:01 | ED.GENADUL_ITS ---
Discharge Plan Disposition Patient Disposition: AGAINST MEDICAL ADVICE Condition: Serious Discharge Details Clinical Impression: Bronchitis, Asthma exacerbation Primary Care Provider: Carla Torres ED Provider: Haritha Borges Home Meds and New Rx's Prescriptions: New prednisone 20 mg tablet 40 mg PO DAILY Qty: 14 RF: 0 Combivent Respimat 20-100 mcg/actuation mist 1 puff inhalation Q6H Qty: 4 RF: 0 Continued albuterol sulfate [ProAir HFA] 90 mcg/actuation HFA aerosol inhaler See Rx Instructions inhalation .Q4-6h PRN (Reason: shortness of breath or wheezing) RF: 0 cetirizine 10 MG tablet,chewable 10 mg PO DAILY RF: 0 ibuprofen 800 MG tablet 800 mg PO Q8H PRN PRNQty: 60 RF: 0 ipratropium-albuterol 0.5 mg-3 mg(2.5 mg base)/3 mL solution for nebulization 3 ml IH Q6H Qty: 90 RF: 2 prednisone 20 mg tablet See Rx Instructions .ROUTE .COMPLEX Qty: 12 RF: 0 albuterol sulfate 2.5 mg /3 mL (0.083 %) solution for nebulization 2.5 mg IH Q4H PRN (Reason: shortness of breath or wheezing) Qty: 75 RF: 0 ipratropium-albuterol 3 ML solution for nebulization 3 ml UPD PRN PRNQty: 180 RF: 0 fluticasone propion-salmeterol [Advair Diskus] 1 PUFF blister with device 2 ea Inhalation BID Qty: 60 RF: 0 levalbuterol tartrate [Xopenex HFA] 1 PUFF HFA aerosol inhaler 2 puff Inhalation PRN PRN (Reason: shortness of breath or wheezing) Qty: 15 RF: 2 montelukast [Singulair] 10 mg tablet 10 mg PO DAILY Qty: 30 RF: 0 Discharge Instructions Instructions: Asthma (ED), Acute Bronchitis (ED) Additional Instructions: You are leaving against our medical recommendation You are aware that you are at risk for further decompensation and even Take 40 mg of prednisone daily until this is completed, immediately after this is completed reinitiate the Advair that you have been prescribed, if you start the Advair you do not need to taper off of your steroid Increase fluid Follow-up with the food and beverage order clerk, I will let her name below, this is very important that you follow-up I am also going to place follow-up for an outpatient PCP I recommend smoking cessation at this will dramatically worsen your symptoms and the COVID-19 vaccination as you are at high risk for having difficulty if you do require this virus Please return immediately with worsening symptoms Referrals: Vilma Peacock MD [ [facility] STAFF PHYSICIAN] - Medical Decision Making Patient appears improved but is still hypoxic and with wheezing The recommendation is for admission, as patient desats 86% on exertion patient has Negative labs and chest x-ray including negative dimer Indication for antibiotics the patient is finished course of azithromycin Will place on prednisone 40 mg for the next 5 days and will use Advair 1 completed Will use Combivent every 6 hours He is aware he is leaving against her medical recommendation, he is fully alert, oriented, of decisional capacity He is aware of risk for further decompensation and even Medical Records Medical records reviewed: Yes I reviewed the patient's medical records. Lab Data Lab results reviewed: Yes I reviewed the patient's lab results. HPI General Mode of arrival: ambulatory . Date/Time Provider Initiated Documentation: 11/02/21 08:05 . Limitations to Documentation: no limitations . Information obtained by: patient . HPI Narrative: This 31-year-old gentleman with history of IV drug abuse on methadone, history of poorly controlled asthma secondary to noncompliance, tobacco abuse presents with report of shortness of breath and wheezing for the past few weeks. He had upper respiratory symptoms and has been evaluated twice at local urgent cares. Patient reportedly was using his mother's inhaler and finished it last week . Denies any calf pain or swelling. Denies any current chest discomfort. Does state he feels short of breath with any exertion. He finished a course of prednisone 1 week ago. He was placed on a taper and is taking 15 mg which she started yesterday. He has had a negative COVID test approximately 1 week prior to arrival. He denies any fever or chills. He denies any history of coagulopathy. Denies COVID vaccination. Denies known sick contacts. Related Data Home Medications Medication Instructions Recorded Confirmed cetirizine 10 mg PO DAILY 01/02/13 11/02/21 ibuprofen 800 mg PO Q8H PRN PRN #60 tab 03/30/13 11/02/21 fluticasone propion-salmeterol 2 ea INHALATION BID #60 each 04/14/20 11/02/21 [Advair Diskus] ipratropium-albuterol 3 ml UPD PRN PRN #180 ml 04/14/20 11/02/21 levalbuterol tartrate [Xopenex HFA] 2 puff INHALATION PRN PRN #15 gm 04/14/20 11/02/21 ipratropium-albuterol 3 ml IH Q6H #90 ml 06/05/20 11/02/21 montelukast [Singulair] 10 mg PO DAILY #30 tab 08/04/20 11/02/21 albuterol sulfate 2.5 mg IH Q4H PRN #75 ml 09/22/20 11/02/21 prednisone See Rx Instructions .ROUTE 09/22/20 11/02/21 .COMPLEX #12 tab albuterol sulfate 90 mcg/actuation See Rx Instructions INHALATION 10/31/21 11/02/21 aerosol inhaler .Q4-6h PRN g ipratropium-albuterol [Combivent 1 puff INHALATION Q6H #4 g 11/02/21 Respimat] prednisone 40 mg PO DAILY #14 tab 11/02/21 Previous Rx's Medication Instructions Recorded ibuprofen 800 mg PO Q8H PRN PRN #60 tab 03/30/13 fluticasone propion-salmeterol 2 ea INHALATION BID #60 each 04/14/20 [Advair Diskus] ipratropium-albuterol 3 ml UPD PRN PRN #180 ml 04/14/20 levalbuterol tartrate [Xopenex HFA] 2 puff INHALATION PRN PRN #15 gm 04/14/20 ipratropium-albuterol 3 ml IH Q6H #90 ml 06/05/20 montelukast [Singulair] 10 mg PO DAILY #30 tab 08/04/20 albuterol sulfate 2.5 mg IH Q4H PRN #75 ml 09/22/20 prednisone See Rx Instructions .ROUTE 09/22/20 .COMPLEX #12 tab ipratropium-albuterol [Combivent 1 puff INHALATION Q6H #4 g 11/02/21 Respimat] prednisone 40 mg PO DAILY #14 tab 11/02/21 Allergies Allergy/AdvReac Type Severity Reaction Status Date / Time No Known Allergies Allergy Unverified 11/02/21 07:56 General Stated Complaint: SOB HEIKE: 3 Review of Systems All systems reviewed & are unremarkable except as noted in HPI and below PFSH All Active Problems (Updated 11/02/21 @ 11:21 by KARYN Miller) Bronchitis (Acute) Asthma exacerbation (Acute) Cough (Acute) Asthma exacerbation (Acute) Medical History (Updated 11/02/21 @ 11:21 by KARYN Miller) Asthma Social History Smoking/Tobacco Use Status: Current every day Tobacco Type: cigarettes Smoking risk assessment performed?: Yes Alcohol Intake: never Drug use: Occasionally Substance use type: former substance user, marijuana and heroin Do you feel safe at home: Yes Do you feel safe in your relationship?: Yes Exam Const General: cooperative and acute distress Orientation: alert and oriented x3 Chest Chest: normal inspection of the chest Resp Effort & Inspection: tachypneic Auscultation: wheezes Cardio Rate: regular rate Rhythm: regular rhythm GI Other: No abdominal tenderness Skin General skin exam: no rashes or lesions noted Neuro General: patient alert and patient oriented x3 Extrem Other: Distal pulses intact, no calf tenderness Course Vital Signs Vital signs: Vital Signs Temperature 36.8 C 11/02/21 07:52 Pulse 102 H 11/02/21 07:52 Respiratory Rate 20 11/02/21 07:52 Blood Pressure 146/86 H 11/02/21 07:52 Pulse Oximetry 93 11/02/21 07:52 Temperature 36.8 C 11/02/21 07:52 Temperature Source Skin 11/02/21 07:52 Pulse 72 11/02/21 09:23 Pulse 89 11/02/21 09:10 Respiratory Rate 22 11/02/21 09:23 Respiratory Effort Labored 11/02/21 08:09 Respiratory Depth Shallow 11/02/21 08:09 Respiratory Pattern Tachypnea 11/02/21 08:09 Blood Pressure 132/72 11/02/21 09:23 Blood Pressure Mean 103 11/02/21 09:01 Blood Pressure Position Sitting 11/02/21 07:52 Pulse Oximetry 92 11/02/21 09:23 Oxygen Delivery Method Nasal Cannula 11/02/21 09:23 Oxygen Flow Rate 2 11/02/21 09:23 Pain Level 0 11/02/21 07:52 Lab/Test Results Lab/Test Results: Laboratory Tests Range/Units 11/02/21 11/02/21 11/02/21 08:58 08:58 08:58 WBC (4.4-10.8) 10^3/uL 6.95 RBC (4.36-5.78) 10^6/uL 5.94 H Hgb (13.5-17.5) g/dL 16.8 Hct (40.0-50.0) % 53.1 H MCV (80-95) fL 89.4 MCH (27.0-33.0) pg 28.3 MCHC (32.0-36.0) % 31.6 L RDW (11.8-14.1) % 13.5 Plt Count (130-400) 10^3/uL 244 MPV (8.0-11.0) fL 10.2 Immature Gran % 0.3 Neutrophils % 52.3 Lymphocytes % 23.7 Monocytes % 9.8 Eosinophils % 12.7 Basophils % 1.2 Nucleated RBC % % 0 Absolute Neutrophils (1.2-6.7) 10^3/uL 3.64 Absolute Lymphocytes (1.2-3.4) 10^3/uL 1.65 Absolute Monocytes (0.1-0.8) 10^3/uL 0.68 Absolute Eosinophils (0.0-0.7) 10^3/uL 0.88 H Absolute Basophils (0.0-0.2) 10^3/uL 0.08 D-Dimer (<500) ng/mlFEU 148 Sodium (136-145) mmol/L 138 Potassium (3.5-5.1) mmol/L 4.3 Chloride (98-107) mmol/L 100 Carbon Dioxide (21.0-32.0) mmol/L 36.1 H Anion Gap (3-11) mmol/L 1.9 L BUN (7-18) mg/dL 13 Creatinine (0.70-1.30) mg/dL 0.9 Estimated GFR/1.73 m2 (mL/min/1.73m2) >= 60.00 Glucose (74-106) mg/dL 106 Calcium (8.5-10.1) mg/dL 8.8 Total Bilirubin (0.2-1.0) mg/dL 0.3 AST (15-37) U/L 44 H ALT (16-63) U/L 122 H Alkaline Phosphatase (46-116) U/L 66 Troponin I (<or=60) ng/L < 50 Total Protein (6.4-8.2) g/dL 7.4 Albumin (3.4-5.0) g/dL 4.0 COVID-19 Source Range/Units 11/02/21 09:50 WBC (4.4-10.8) 10^3/uL RBC (4.36-5.78) 10^6/uL Hgb (13.5-17.5) g/dL Hct (40.0-50.0) % MCV (80-95) fL MCH (27.0-33.0) pg MCHC (32.0-36.0) % RDW (11.8-14.1) % Plt Count (130-400) 10^3/uL MPV (8.0-11.0) fL Immature Gran % Neutrophils % Lymphocytes % Monocytes % Eosinophils % Basophils % Nucleated RBC % % Absolute Neutrophils (1.2-6.7) 10^3/uL Absolute Lymphocytes (1.2-3.4) 10^3/uL Absolute Monocytes (0.1-0.8) 10^3/uL Absolute Eosinophils (0.0-0.7) 10^3/uL Absolute Basophils (0.0-0.2) 10^3/uL D-Dimer (<500) ng/mlFEU Sodium (136-145) mmol/L Potassium (3.5-5.1) mmol/L Chloride (98-107) mmol/L Carbon Dioxide (21.0-32.0) mmol/L Anion Gap (3-11) mmol/L BUN (7-18) mg/dL Creatinine (0.70-1.30) mg/dL Estimated GFR/1.73 m2 (mL/min/1.73m2) Glucose (74-106) mg/dL Calcium (8.5-10.1) mg/dL Total Bilirubin (0.2-1.0) mg/dL AST (15-37) U/L ALT (16-63) U/L Alkaline Phosphatase (46-116) U/L Troponin I (<or=60) ng/L Total Protein (6.4-8.2) g/dL Albumin (3.4-5.0) g/dL COVID-19 Source Nasal/Nares
[2021-11-02 10:41] LABS: COVID-19 PCR Negative (Negative); Influenza A PCR Negative (Negative); Influenza B PCR Negative (Negative); RSV PCR Negative (Negative)
--- NOTE | 2021-11-02 11:05 | DI.VRAD_ITS ---
PROCEDURE INFORMATION: Exam: XR Chest Exam date and time: 11/02/2021 10:03 AM Age: 31 years old Clinical indication: Shortness of breath TECHNIQUE: Imaging protocol: XR of the chest. Views: 1 view. COMPARISON: CR XR PORTABLE CHEST AP 09/02/2021 1:56 PM FINDINGS: Lungs: Bronchial wall thickening. No convincing consolidation. Pleural spaces: No sizable pleural effusion. No pneumothorax. Heart/Mediastinum: Cardiomediastinal silhouette is within normal limits. Bones/joints: No acute displaced fracture or dislocation. IMPRESSION: Bronchial wall thickening suggestive of airways disease without convincing evidence of pneumonia at this time. Dictated and Authenticated by: Joe Hair MD. Ordering:NATY Mg MD
--- NOTE | 2021-11-02 11:34 | NUR.NOTE ---
Referral given to Care Management to establish care/follow up for asthma exacerbation S[place]O with a PCP. Referral faxed to [facility] Pulmonology for asthma exacerbation S[place]. Cande Mathias Nursing Note:
== END 2021-11-02 11:39 | disposition left against medical advice (07) ==
PROVIDERS: Emergency Provider Physician Assistant; PCP Family Medicine
DX: J20.9 Acute bronchitis, unspecified (principal); J45.901 Unspecified asthma with (acute) exacerbation; Z53.29 Procedure and treatment not carried out because of patient's decision for other reasons; R09.02 Hypoxemia; Z91.14 Patient's other noncompliance with medication regimen; F17.210 Nicotine dependence, cigarettes, uncomplicated
CPT/HCPCS: 80053; 87637; 93005; 94640; 96361; 96374; 99284; 71045; 84484; 85025; 85379; 93010; J2930; J7620

== ENCOUNTER 2021-12-02 18:09 | Emergency (ER) | payer MEDICAID, SELFPAY ==
[2021-12-02 18:31] VITALS: BP 120/68; PULSE 97; RESP 20; TEMP 36.9; O2SAT 90
--- NOTE | 2021-12-02 18:45 | DI.RAD_ITS ---
Exam(s) XR CHEST 2V PA LATERAL EXAM: XR CHEST 2V PA LATERAL CLINICAL HISTORY: shortness of breath, wheezing,r/o acute disease/fb TECHNIQUE: COMPARISON: CR,XR XR PORTABLE CHEST AP from 11/02/2021 FINDINGS: The heart is not enlarged. There is pulmonary hyperinflation without focal pulmonary consolidation. No pleural effusion seen. IMPRESSION: Pulmonary hyperinflation, this finding is more prominent than on prior examination of November 02. RADIATION DOSE DELIVERED: Total DLP
--- NOTE | 2021-12-02 18:46 | ED.GENADUL_ITS ---
Discharge Plan Disposition Patient Disposition: HOME Condition: Improving Discharge Details Clinical Impression: Asthma exacerbation Primary Care Provider: Carla Torres ED Provider: Sheela Muhammad Home Meds and New Rx's Prescriptions: New levalbuterol tartrate [Xopenex HFA] 45 mcg/actuation HFA aerosol inhaler 2 inh inhalation Q6H Qty: 15 0RF Combivent Respimat 20-100 mcg/actuation mist 1 puff inhalation Q6H Qty: 4 0RF albuterol sulfate 90 mcg/actuation HFA aerosol inhaler 2 puff inhalation Q6H PRNQty: 8.5 0RF albuterol sulfate 2.5 mg /3 mL (0.083 %) solution for nebulization 2.5 mg inhalation Q4H PRN (Reason: shortness of breath or wheezing) Qty: 75 0RF fluticasone propion-salmeterol [Advair Diskus] 250-50 mcg/dose blister with device 1 inh inhalation BID Qty: 60 0RF ipratropium-albuterol 0.5 mg-3 mg(2.5 mg base)/3 mL solution for nebulization 3 ml inhalation Q6H PRN (Reason: shortness of breath or wheezing) Qty: 90 0RF doxycycline hyclate 100 mg tablet 100 mg PO BID 7 Days Qty: 14 0RF prednisone 50 mg tablet 50 mg PO DAILY 5 Days Qty: 5 0RF Continued albuterol sulfate [ProAir HFA] 90 mcg/actuation HFA aerosol inhaler See Rx Instructions inhalation .Q4-6h PRN (Reason: shortness of breath or wheezing) 0RF Rx Instructions: 1-2 puffs inhalation .Q4-6h PRN; cetirizine 10 MG tablet,chewable 10 mg PO DAILY 0RF ibuprofen 800 MG tablet 800 mg PO Q8H PRN PRNQty: 60 0RF ipratropium-albuterol 0.5 mg-3 mg(2.5 mg base)/3 mL solution for nebulization 3 ml IH Q6H Qty: 90 2RF albuterol sulfate 2.5 mg /3 mL (0.083 %) solution for nebulization 2.5 mg IH Q4H PRN (Reason: shortness of breath or wheezing) Qty: 75 0RF Combivent Respimat 20-100 mcg/actuation mist 1 puff inhalation Q6H Qty: 4 0RF ipratropium-albuterol 3 ML solution for nebulization 3 ml UPD PRN PRNQty: 180 0RF fluticasone propion-salmeterol [Advair Diskus] 1 PUFF blister with device 2 ea Inhalation BID Qty: 60 0RF levalbuterol tartrate [Xopenex HFA] 1 PUFF HFA aerosol inhaler 2 puff Inhalation PRN PRN (Reason: shortness of breath or wheezing) Qty: 15 2RF montelukast [Singulair] 10 mg tablet 10 mg PO DAILY Qty: 30 0RF Discharge Instructions Instructions: Asthma (ED) Additional Instructions: Your chest xray shows no evidence of acute disease at this time. Drink plenty of fluids and get plenty of rest. You are being sent home with prescription refills of all of your regular medications to take as needed and directed for your asthma. You are also being sent home with a prescription for steroids and antibiotics to take as directed until finished. You have been placed on care management's list to arrange for a follow up appoi ntment with a primary care doctor for re-evaluation. Return immediately to the emergency department with any worsening or new concerning symptoms. Discharge Data Discharge Date/Time-TO BE ENTERED AT DEPARTURE: 12/02/21 21:06 Discharge Physician: Sheela Muhammad Medical Decision Making 31-year-old male with a history of asthma with previous intubation presents with sore throat and shortness of breath since choking on a sugar candy a few days ago with increased shortness of breath and wheezing today which he reports is consistent with his usual asthma exacerbation. Oxygen saturation 90% on room air on arrival. He has wheezing throughout. He is speaking in 3-4 word sentences. Airway intact and normal-appearing oropharynx. He denies any known exposure to Covid and he is unvaccinated for Covid. Presentation does not appear consistent with coronavirus. Will obtain a chest x-ray to rule out aspiration pneumonia. We will give a DuoNeb and oral steroids. Chest x-ray notes: IMPRESSION: 1. Moderate to severe bilateral hyperinflation suggesting air trapping related to upper respiratory infection or reactive airway disease. 2. No foreign body evident. 3. No focal air trapping evident. 4. No acute infiltrates or lung consolidation. 5. No pleural effusion. Patient reassessed and he feels much better. He is speaking in full sentences. Patient is requesting to go home. He is requesting a prescription for antibiotics. As patient is a smoker, will provide with doxycycline. He was requesting refills of all of his medications which were provided. He was also provided with an albuterol inhaler and doxycycline to go in addition to prescriptions for antibiotics and steroids. Patient placed on care management list to arrange for follow-up appointment with the primary care doctor to establish care for reevaluation. Usual and customary return precautions given prior to discharge. Medical Records Medical records reviewed: Yes I reviewed the patient's medical records. Imaging Data Radiologic Study: Radiologist's impression: XR Chest Exam date and time: 12/02/2021 6:46 PM Age: 31 years old Clinical indication: Shortness of breath and wheezing; Patient HX: Shortness of breath, wheezing, R/O acute disease/fb. May have aspirated a candy. Discomfort right upper chest TECHNIQUE: Imaging protocol: XR of the chest. Views: 2 views. COMPARISON: CR XR PORTABLE CHEST AP 11/02/2021 10:44 AM FINDINGS: Lungs: Bilateral moderate to severe hyperinflation suggesting air trapping from upper respiratory infection or reactive airway disease. No focal infiltrates. Pleural spaces: No pleural effusion. Heart/Mediastinum: Normal heart size. Bones/joints: No acute skeletal disruption. IMPRESSION: 1. Moderate to severe bilateral hyperinflation suggesting air trapping related to upper respiratory infection or reactive airway disease. 2. No foreign body evident. 3. No focal air trapping evident. 4. No acute infiltrates or lung consolidation. 5. No pleural effusion. HPI General Mode of arrival: ambulatory . Date/Time Provider Initiated Documentation: 12/02/21 18:41 . Limitations to Documentation: no limitations . Information obtained by: patient . HPI Narrative: Patient is a 31-year-old male with a history of asthma and previous intubation occurring around 2016 secondary to asthma exacerbation presents for shortness of breath and wheezing for the past few days. He states he was eating an airhead candy a few days ago and felt that he swallowed it or it went down the wrong pipe and has had some sore throat and increased shortness of breath since then. He states his symptoms became worse today and feels it is consistent with his usual asthma attack. He states he ran out of his Advair and Combivent 1 month ago but more recently ran out of his Xopenex and albuterol. Related Data Home Medications Medication Instructions Recorded Confirmed cetirizine 10 mg chewable tablet 10 mg PO DAILY 01/02/13 12/02/21 ibuprofen 800 mg tablet 800 mg PO Q8H PRN PRN #60 tab 03/30/13 12/02/21 fluticasone 500 mcg-salmeterol 50 2 ea INHALATION BID #60 each 04/14/20 12/02/21 mcg/dose blistr powdr for inhalation (Advair Diskus) ipratropium 0.5 mg-albuterol 3 mg 3 ml UPD PRN PRN #180 ml 04/14/20 12/02/21 (2.5 mg base)/3 mL nebulization soln levalbuterol tartrate 45 2 puff INHALATION PRN PRN #15 gm 04/14/20 12/02/21 mcg/actuation aerosol inhaler (Xopenex HFA) ipratropium 0.5 mg-albuterol 3 mg 3 ml IH Q6H #90 ml 06/05/20 12/02/21 (2.5 mg base)/3 mL nebulization soln montelukast 10 mg tablet 10 mg PO DAILY #30 tab 08/04/20 12/02/21 (Singulair) albuterol sulfate 2.5 mg (3 mL) IH Q4H PRN #75 ml 09/22/20 12/02/21 albuterol sulfate 90 mcg/actuation See Rx Instructions INHALATION 10/31/21 12/02/21 aerosol inhaler (ProAir HFA) .Q4-6h PRN g ipratropium 20 mcg-albuterol 100 1 puff INHALATION Q6H #4 g 11/02/21 12/02/21 mcg/actuation mist for inhalation (Combivent Respimat) albuterol sulfate 2.5 mg (3 mL) INHALATION Q4H PRN 12/02/21 #75 ml albuterol sulfate 90 mcg/actuation 2 puff INHALATION Q6H PRN #8.5 g 12/02/21 aerosol inhaler doxycycline hyclate 100 mg tablet 100 mg PO BID 7 Days #14 tab 12/02/21 fluticasone 250 mcg-salmeterol 50 1 inh INHALATION BID #60 ea 12/02/21 mcg/dose blistr powdr for inhalation (Advair Diskus) ipratropium 0.5 mg-albuterol 3 mg 3 ml INHALATION Q6H PRN #90 ml 12/02/21 (2.5 mg base)/3 mL nebulization soln ipratropium 20 mcg-albuterol 100 1 puff INHALATION Q6H #4 g 12/02/21 mcg/actuation mist for inhalation (Combivent Respimat) levalbuterol tartrate 45 2 inh INHALATION Q6H #15 g 12/02/21 mcg/actuation aerosol inhaler (Xopenex HFA) prednisone 50 mg tablet 50 mg PO DAILY 5 Days #5 tab 12/02/21 Previous Rx's Medication Instructions Recorded ibuprofen 800 mg tablet 800 mg PO Q8H PRN PRN #60 tab 03/30/13 fluticasone 500 mcg-salmeterol 50 2 ea INHALATION BID #60 each 04/14/20 mcg/dose blistr powdr for inhalation (Advair Diskus) ipratropium 0.5 mg-albuterol 3 mg 3 ml UPD PRN PRN #180 ml 04/14/20 (2.5 mg base)/3 mL nebulization soln levalbuterol tartrate 45 2 puff INHALATION PRN PRN #15 gm 04/14/20 mcg/actuation aerosol inhaler (Xopenex HFA) ipratropium 0.5 mg-albuterol 3 mg 3 ml IH Q6H #90 ml 06/05/20 (2.5 mg base)/3 mL nebulization soln montelukast 10 mg tablet 10 mg PO DAILY #30 tab 08/04/20 (Singulair) albuterol sulfate 2.5 mg (3 mL) IH Q4H PRN #75 ml 09/22/20 ipratropium 20 mcg-albuterol 100 1 puff INHALATION Q6H #4 g 11/02/21 mcg/actuation mist for inhalation (Combivent Respimat) albuterol sulfate 2.5 mg (3 mL) INHALATION Q4H PRN 12/02/21 #75 ml albuterol sulfate 90 mcg/actuation 2 puff INHALATION Q6H PRN #8.5 g 12/02/21 aerosol inhaler doxycycline hyclate 100 mg tablet 100 mg PO BID 7 Days #14 tab 12/02/21 fluticasone 250 mcg-salmeterol 50 1 inh INHALATION BID #60 ea 12/02/21 mcg/dose blistr powdr for inhalation (Advair Diskus) ipratropium 0.5 mg-albuterol 3 mg 3 ml INHALATION Q6H PRN #90 ml 12/02/21 (2.5 mg base)/3 mL nebulization soln ipratropium 20 mcg-albuterol 100 1 puff INHALATION Q6H #4 g 12/02/21 mcg/actuation mist for inhalation (Combivent Respimat) levalbuterol tartrate 45 2 inh INHALATION Q6H #15 g 12/02/21 mcg/actuation aerosol inhaler (Xopenex HFA) prednisone 50 mg tablet 50 mg PO DAILY 5 Days #5 tab 12/02/21 Allergies Allergy/AdvReac Type Severity Reaction Status Date / Time No Known Allergies Allergy Unverified 12/02/21 18:43 General Stated Complaint: RespSymp HEIKE: 3 Review of Systems All systems reviewed & are unremarkable except as noted in HPI and below Constitutional Constitutional: Reports as per HPI, Denies chills and Denies fever(s) Eyes Eyes: Denies blurry vision ENT Ears, Nose, Mouth, and Throat: Denies dizziness, Denies sore throat and Denies throat swelling Cardiovascular Cardiovascular: Denies chest pain and Reports dyspnea Respiratory Respiratory: Denies cough and Reports dyspnea Gastrointestinal Gastrointestinal: Denies abdominal pain, Denies diarrhea and Denies vomiting Genitourinary Genitourinary: Denies hematuria and Denies dysuria Musculoskeletal Musculoskeletal: Denies back pain and Denies numbness Integumentary/Breasts Skin/Breast: Denies lesions and Denies rash Neurologic Neurologic: Denies dizziness, Denies localized weakness and Denies numbness Allergic/Immunologic Allergic/Immunologic: Denies throat swelling PFSH All Active Problems (Updated 12/03/21 @ 00:04 by JULI TOBAR) Asthma exacerbation (Acute) Cough (Acute) Asthma exacerbation (Acute) Medical History (Updated 12/03/21 @ 00:04 by JULI TOBAR) Asthma Social History Smoking/Tobacco Use Status: Current every day Tobacco Type: cigarettes Smoking risk assessment performed?: Yes Alcohol Intake: never Drug use: Occasionally Substance use type: former substance user, marijuana and heroin Do you feel safe at home: Yes Do you feel safe in your relationship?: Yes Exam Const General: cooperative, no acute distress and in distress respiratory (mild- moderate) Orientation: alert, awake and oriented x3 HENMT Head: normal to inspection Mouth: oral mucosae normal Eyes General: appearance normal, both eyes and all related structures Neck Neck: normal visual inspection Resp Effort & Inspection: normal respiratory effort and not able to speak in complete sentences (3-4 word sentences) Auscultation: wheezes expiratory wheezes and inspiratory wheezes Cardio Rate: regular rate Rhythm: regular rhythm Skin General skin exam: no rashes or lesions noted Neuro General: patient alert, patient awake and patient oriented x3 Motor: muscle tone normal throughout Extrem General: normal to inspection and full ROM Psych Appearance: grossly normal Affect: normal affect Course Vital Signs Vital signs: Vital Signs Temperature 98.4 F 12/02/21 18:31 Pulse 97 H 12/02/21 18:31 Respiratory Rate 20 12/02/21 18:31 Blood Pressure 120/68 12/02/21 18:31 Pulse Oximetry 90 L 12/02/21 18:31 Temperature 98.4 F 12/02/21 18:31 Temperature Source Temporal Artery Scan 12/02/21 18:31 Pulse 97 H 12/02/21 18:31 Respiratory Rate 20 12/02/21 18:31 Respiratory Effort Labored 12/02/21 18:40 Blood Pressure 120/68 12/02/21 18:31 Blood Pressure Position Sitting 12/02/21 18:31 Pulse Oximetry 90 L 12/02/21 18:31 Oxygen Delivery Method Room Air 12/02/21 18:31 Oxygen Flow Rate 0 12/02/21 18:31 Pain Level 7 12/02/21 18:31
[2021-12-02 18:54] VITALS: PULSE 105; RESP 20; RESP 4; O2SAT 90
[2021-12-02] MEDS: Albuterol 2.5 MG/3 ML INH SOLN VIAL 5 MG UPD (18:54)
[2021-12-02 18:55] VITALS: PULSE 105; RESP 20; RESP 4; O2SAT 90
[2021-12-02] MEDS: Albuterol/Ipratropium 3 ML UPD VIAL (18:55)
[2021-12-02] MEDS: predniSONE 20 MG TAB 60 MG PO (18:55)
[2021-12-02 19:24] VITALS: RESP 1
[2021-12-02 19:25] VITALS: RESP 1
--- NOTE | 2021-12-02 20:02 | NUR.NOTE ---
Referral to Care Management to establish PCP to be seen in 2 weeks, Disability PPW.Nursing Note:
--- NOTE | 2021-12-02 20:46 | DI.VRAD_ITS ---
PROCEDURE INFORMATION: Exam: XR Chest Exam date and time: 12/02/2021 6:46 PM Age: 31 years old Clinical indication: Shortness of breath and wheezing; Patient HX: Shortness of breath, wheezing, R/O acute disease/fb. May have aspirated a candy. Discomfort right upper chest TECHNIQUE: Imaging protocol: XR of the chest. Views: 2 views. COMPARISON: CR XR PORTABLE CHEST AP 11/02/2021 10:44 AM FINDINGS: Lungs: Bilateral moderate to severe hyperinflation suggesting air trapping from upper respiratory infection or reactive airway disease. No focal infiltrates. Pleural spaces: No pleural effusion. Heart/Mediastinum: Normal heart size. Bones/joints: No acute skeletal disruption. IMPRESSION: 1. Moderate to severe bilateral hyperinflation suggesting air trapping related to upper respiratory infection or reactive airway disease. 2. No foreign body evident. 3. No focal air trapping evident. 4. No acute infiltrates or lung consolidation. 5. No pleural effusion. Dictated and Authenticated by: Doe Lemon MD. Ordering:DARYA Coker MD
[2021-12-02] MEDS: Albuterol HFA 8 GM 60 PUFF INH IH (21:01)
[2021-12-02] MEDS: Doxycycline Hyclate 100 MG, 2 CAPS/BTL PO (21:04)
== END 2021-12-02 21:06 | disposition home or self-care (01) ==
PROVIDERS: Emergency Provider Physician Assistant; PCP Family Medicine
DX: J45.901 Unspecified asthma with (acute) exacerbation (principal); R06.02 Shortness of breath; Z28.3 Underimmunization status; F17.210 Nicotine dependence, cigarettes, uncomplicated
CPT/HCPCS: 94640; 99283; 71046; J7512; J7613; J7620